=== PATIENT | female | born 1975 | race Caucasian/White ===

== ENCOUNTER 2025-02-24 18:03 | Emergency (ER) | payer OTHER, SELFPAY ==
--- NOTE | ~2025-02-24 | CT_ITS ---
CTA chest PE protocol Ordering provider: Akila Rueda PA-C History: 49 years Female with . cp, sob, dizziness . Comparison: None. Technique: CT angiogram chest was performed following timed intravenous injection of contrast. Thin s lice axial images and reformatted coronal images were obtained. Three dimensional reformatted images of the chest were also obtained using a [employer] workstation. . Automated exposure control and iterati ve reconstruction technique were employed. The dose-length product was 186.60 mGy-cm. 100 mL Omnipaqu e 350 was given IV. Findings: Bilateral breast implants are noted. Left axillary lymph node is seen measuring 1.6 cm. PULMONARY ARTERIES: No pulmonary embolus. VISUALIZED THORACIC INLET: Normal. MEDIASTINUM: Aorta/coronary arteries: The thoracic aorta is normal. Heart/other: The heart is not enlarged. Lymph nodes: No mediastinal or hilar adenopathy. LUNGS: No pulmonary nodules or masses. No infiltrates or effusions. No pneumothorax. Dependent atelectatic c hanges. VISUALIZED UPPER ABDOMEN: Tiny hypodense area in the gallbladder suggestive of organs and normal chol elithiasis. Prominent pancreatic duct. 2 left renal arteries are noted. Otherwise, the visualized up per abdomen is normal. MUSCULOSKELETAL: Soft tissues: The superficial soft tissues are normal. Bones: Normal spine. Metallic object seen in the right chest wall. IMPRESSION: 1. No pulmonary embolism. 2. No acute cardiopulmonary pathology. 3. Cholelithiasis. Reviewed, dictated and finalized at location A.
--- NOTE | ~2025-02-24 | XR_ITS ---
CHEST RADIOGRAPH, PA AND LATERAL CLINICAL HISTORY: chest pain WITH LIGHTHEADEDNESS SENIOR SHAREPOINT ARCHITECT . COMPARISON: None available TECHNIQUE: PA and lateral views of the chest. FINDINGS The cardiomediastinal silhouette is unremarkable. The lungs are clear. IMPRESSION: No focal infiltrate or effusion. Reviewed, dictated and finalized at location A.
--- OUTSIDE RECORDS SUMMARY | 2025-02-24 18:05 | XMS_ITS | Encounter Summary ---
Author Organization [facility] Healthcare Address [address] [place] [address] Care Team Providers Care Warehouse Supervisor 3Rd Shift Name Role Phone Geoffrey Pappas MD Primary Care Provider [phone] Reason for Visit * Reason Comments Dizziness Lightheaded SOB, and sweating at work today within the last hour and c/o feels like she has a ton of bricks on her chest. Encounter Details Date Type Department Care Team (Late st Contact Info) Description 02/24/2025 5:15 PM CDT Office Visit [facility] at [address] [address] Rubi Elias, PRODUCT MANAGER E [employer] [address] [place] [address] Other chest pain (Primary Dx); Lightheadedness; Numbness and tingling of both legs; Diaphoresis Social History Tobacco Use Types Packs/Day Years Used Date Smoking Tobacco: Light Smoker Cigarettes Smokeless Tobacco: Never Alcohol Use Standard Drinks/Week Comments No 0 (1 standard drink = 0.6 oz pur e alcohol) Humiliation, Afraid, Rape, and Kick questionnair e Answer Date Recorded Fear of Current or Ex-Partner Patient declined 0 12/12/2018 Emotionally Abused Patient declined 12/12/2018 Physically Abused Patient declined 12/12/2018 Sexually Abused Patient declined 12/12/2018 Social Connection and Isolation Panel [NHANES] A nswer Date Recorded Frequency of Communication with Friends and Fami ly Patient declined 12/12/2018 Frequency of Social Gatherings with Friends and Family Patient declined 12/12/2018 Attends Cheondoism Services Patient declined 11/29 Active Member of Clubs or Organizations Patient declined 12/12/2018 Attends Club or Organization Meetings Patient de clined 12/12/2018 Marital Status Patient declined 12/12/2018 Overall Financial Resource Strain (CARDIA) Answe r Date Recorded Difficulty of Paying Living Expenses Patient dec lined 12/12/2018 [facility] - Occupational Stress Questionnaire Answer Date Recorded Feeling of Stress Patient declined 12/12/2018 Exercise Vital Sign Answer Date Recorde d Days of Exercise per Week Patient declined 12/12 Minutes of Exercise per Session Patient declined 12/12/2018 Hunger Vital Sign Answer Date Recorded Worried About Running Out of Food in the Last Ye ar Patient declined 12/12/2018 Ran Out of Food in the Last Year Patient decline d 12/12/2018 PRAPARE - Transportation Answer Date Re corded Lack of Transportation (Medical) Patient decline d 12/12/2018 Lack of Transportation (Non-Medical) Patient dec lined 12/12/2018 Comments Unknown Sex and Gender Information Value Date Recorded Sex Assigned at Not on file Legal Sex Female 2:34 AM CASINO GAMING 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 Gender Identity Not on file Sexual Orientation Not on file 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 Not on file Not on file Not on fi le documented as of this encounter Last Filed Vital Signs Vital Sign Reading Time Taken Comments Blood Pressure 141/76 02/24/2025 5:24 PM CDT Pulse 70 02/24/2025 5:07 PM CDT Temperature 36.6 C (97.8 F) 02/24/2025 5:07 PM CDT Respiratory Rate 16 02/24/2025 5:07 PM CDT Oxygen Saturation 99% 02/24/2025 5:07 PM CDT Inhaled Oxygen Concentration - - Weight 57.6 kg (127 lb) 02/24/2025 5:07 PM CDT Height - - Body Mass Index 23.23 08/18/2019 10:21 AM CASINO GAMING WORKER documented in this encounter Plan of Treatment Not on file documented as of this encounter Visit Diagnoses Diagnosis Other chest pain- Primary Lightheadedness Dizziness and giddiness Numbness and tingling of both legs Disturbance of skin sensation Diaphoresis Generalized hyperhidrosis documented in this encounter Historical Medications * This list may reflect changes made after this encounter. SUMAtriptan (IMITREX) 50 mg tablet TAKE 1 TABLET BY MOUTH AT ONSET OF HEADACHE. MAY REPEAT IN 45 MINUTES. IF NO IMPROVEMENT. NO MORE THAN 2 PILLS PER DAY gabapentin (NEURONTIN) 300 mg capsule Take 1 capsule (300 mg total) by mouth 3 (three) times a day 11/07/2023 butalbital-acetam inophen-caffeine (ESGIC) 50-325-40 mg per tablet TAKE 2 TABLETS BY MOUTH AT ONSET OF HEADACHE THEN TAKE 1 TABLET BY MOUTH EVERY 6 HOURS NEEDED added in this encounter Care Teams Warehouse Supervisor 3Rd Shift Relationship Specialty Start Date End Date Geoffrey Pappas MD [address] [place] [address] PCP - General Neurology 02/20/24 documented as of this encounter
--- OUTSIDE RECORDS SUMMARY | 2025-02-24 18:05 | XMS_ITS | Encounter Summary ---
Author Organization [facility] Address [address] [place] [address] Care Team Providers Care Project Scheduler Name Role Phone Eryn Taveras MD Primary Care Provider [phone] Reason for Visit * Reason Onset Date Comments Question 04/27/2020 Patient called l ast week about this and states no one ever called her back. Patient was scheduled for surgery with Dr. aHy last week, but had to be cancelled due to an insurance issue. She is rescheduled, but not until June. She has some questions about her pain and the current script of Gabapentin she has. Encounter Details Date Type Department Care Team (Late st Contact Info) Description 04/27/2020 Telephone [facility] [address] [place] [address] Mary Ailce Hay MD [facility] [place] [address] Question (Patient called last week about this and states no one ever called her back. Patient was scheduled for surgery with Dr. Hay last week, but had to be cancelled due to an insurance issue. She is rescheduled, but not until June. She has some questions about her pain and the current script of Gabapentin she has. ) Social History Tobacco Use Types Packs/Day Years Used Date Smoking Tobacco: Former Cigarettes 0.3 2 0 12/2017 - 12/2019 Smokeless Tobacco: Never Alcohol Use Standard Drinks/Week Comments Not Currently 0 (1 standard drink = 0.6 oz pur e alcohol) Clean since 2012 Comments No Sex and Gender Information Value Date Recorded Sex Assigned at Female 10/11/2023 10:05 AM EXTRA HAND Legal Sex Female 9:02 AM CDT Gender Identity Female 10/11/2023 10:05 AM EXTRA HAND Sexual Orientation Not on file documented as of this encounter Miscellaneous Notes * Telephone Encounter - Bianka Bermudez - 04/27/2020 3:13 PM CDT Plastic Surgery Phone Encounter Note 04/27/2020 Patient Name: Faustina Douglass : 1975 Details of Conversation: Called patient and left her a voicemail. Plan: Will try again later / expect call from patient. Carlos Bermudez MD Plastic & Reconstructive Surgery Resident [facility] Pager#: [phone] 04/27/2020 documented in this encounter Plan of Treatment Not on file documented as of this encounter Visit Diagnoses Not on filedocumented in this encounter Care Teams Project Scheduler Relationship Specialty Start Date End Date Eryn Taveras MD [address] [place] [address] PCP - General Gastroenterology 04/13/20 documented as of this encounter
--- OUTSIDE RECORDS SUMMARY | 2025-02-24 18:05 | XMS_ITS | Patient Health Record ---
Author Organization [facility] Address [address] [place] [address] Support Name Relationship Address Phone Shailesh Douglass Emergency Contact [address] [facility], [address] Faustina Douglass Guarantor Unknown [phone] Reason For Referral No Information Plan Of Treatment No Information
--- OUTSIDE RECORDS SUMMARY | 2025-02-24 18:05 | XMS_ITS | Encounter Summary ---
Author Organization [facility] Health Address [address] [facility] [place] [address] Care Team Providers Care Filling Carrier Name Role Phone Eryn Taveras MD Primary Care Provider Reason for Visit * Reason Onset Date Comments Question 04/19/2020 Patient was sche duled for surgery with Dr. Hay last week, but had to be cancelled due to an insurance issue. She is rescheduled, but not until June. She has some questions about her pain and the current script of Gabapentin she has. Encounter Details Date Type Department Care Team (Late st Contact Info) Description 04/19/2020 Telephone [facility] [address] [place] [address] Mary Alice Hay MD [address] [place] [address] Question (Patient was scheduled for surgery with Dr. Hay [...] Sex Assigned at Female 10/11/2023 10:05 AM SHOE REPAIRER APPRENTICE Legal Sex Female 9:02 AM CDT Gender Identity Female 10/11/2023 10:05 AM SHOE REPAIRER APPRENTICE Sexual Orientation Not on file documented as of this encounter Plan of Treatment Not on file documented as of this encounter Visit Diagnoses Not on filedocumented in this encounter Care Teams Filling Carrier Relationship Specialty Start Date End Date Eryn Taveras MD [address] [place] [phone] PCP - General Gastroenterology 04/13/20 documented as of this encounter
--- OUTSIDE RECORDS SUMMARY | 2025-02-24 18:05 | XMS_ITS | Clinical Summary ---
Author Organization [facility] Address [address] [facility] [place] [address] Care Team Providers Care Stress Engineer Name Role Phone Eryn Taveras MD Primary Care Provider Source Comments [facility] Affiliates and Associated Physician Practices is amultiple site organization consisting of ambulatory clinics and hospital sitesin [place], [place], [place] and [place]. This disclosure is being madepursuant to the Care Everywhere program and may not contain all information available regarding this patient. Last updated 18.[facility] [employer] Allergies No known active allergies Medications * Be aware that medications may not be up to date on this document. Alwaysverify current medications with the patient. butalbital-acet aminophen-caffe ine (FIORICET) 50-325-40 MG tablet Take 1 (one) tablet by mouth as needed Active sertraline (ZOLOFT) 100 MG tablet Take 1 (one) tablet by mouth once daily 1 Active propranolol CR 24hr (INDERAL LA) 80 MG capsule Take 160 mg by mouth once daily 1 Active polyethylene glycol 3350 (MiraLax) 17 g packetIndicatio ns:Bloating Take 17 (seventeen) g by mouth once daily Reasons: Bloating 60 packet 2 3 Active Additional Information Patient not taking.Reported on 11/07/2023 gabapentin (Neurontin) 300 MG capsuleIndicati ons:S/P breast reconstruction, bilateral Take 1 (one) capsule by mouth 2 times daily 60 capsule 4 3 Active topiramate (Topamax) 50 MG tablet Take 1 (one) tablet by mouth once daily 3 Active gabapentin (Neurontin) 300 MG capsuleIndicati ons:S/P breast reconstruction, bilateral,Histo ry of right breast cancer,Neuropat hic pain Take 1 (one) capsule by mouth 3 times daily 270 capsule 4 4 Active Active Problems Problem Noted Date Diagnosed Date History of smoking 03/26/2019 Breast asymmetry following reconstructive surger y 03/26/2019 Capsular contracture of breast implant 9 BRCA gene mutation positive in female 03/26/2019 History of right breast cancer 01/15/2019 BRCA gene mutation positive 01/15/2019 S/P breast reconstruction, bilateral 01/15/2019 Acquired absence of breast and nipple, bilateral 01/15/2019 Malignant neoplasm of upper- outer quadrant of right breast in female, estrogen receptor positive 04/17/2018 Family History Medical History Relation Name Comments Cancer - Other Maternal Grandfather Cancer - Other Mother Cancer - Other Paternal Grandfather Relation Name Status Comments Maternal Grandfather Mother Paternal Grandfather Social History Tobacco Use Types Packs/Day Years Used Date Smoking Tobacco: Former Cigarettes 0.3 2 0 12/2017 - 12/2019 Smokeless Tobacco: Never Tobacco Cessation:Counseling Given: Not Answered Comments:smokes 1 every couple of weeks Alcohol Use Standard Drinks/Week Comments Not Currently 0 (1 standard drink = 0.6 oz pur e alcohol) Clean since 2012 Comments No Sex and Gender Information Value Date Recorded Sex Assigned at Female 10/11/2023 10:05 AM LOGISTICS DIRECTOR Legal Sex Female 9:02 AM CDT Gender Identity Female 10/11/2023 10:05 AM LOGISTICS DIRECTOR Sexual Orientation Not on file Last Filed Vital Signs Vital Sign Reading Time Taken Comments Blood Pressure 116/75 11/07/2023 1:44 PM LOGISTICS DIRECTOR Pulse 67 11/07/2023 1:44 PM LOGISTICS DIRECTOR Temperature 36.8 C (98.3 F) 02/07/2023 10:49 AM CDT Respiratory Rate 16 10/05/2022 3:52 PM LOGISTICS DIRECTOR Oxygen Saturation 98% 11/07/2023 1:44 PM LOGISTICS DIRECTOR Inhaled Oxygen Concentration - - Weight 59.9 kg (132 lb) 11/07/2023 1:44 PM LOGISTICS DIRECTOR Height 157.5 cm (5' 2) 11/07/2023 1:44 PM LOGISTICS DIRECTOR Body Mass Index 24.14 11/07/2023 1:44 PM LOGISTICS DIRECTOR Plan of Treatment Health Maintenance Due Date Last Done Comments COLOGUARD (AGES 45-75) - COL ON CA SCREENING 1975 CT COLONOGRAPHY - COLON CA SCREENING 1975 FIT - COLON CA SCREENING 1975 FLEX SIG - COLON CA SCREENING 1975 LIPID TESTING 1975 MAMMOGRAM 1975 PAP SMEAR 1975 HIV SCREENING 1991 HEPATITIS C SCREENING 11/04/1994 DTAP/TDAP/TD VACCINES (1 - Tdap) 1995 HEPATITIS B VACCINE (1 of 3 - 19+ 3-dose series) 1995 COVID-19 VACCINE (1 - 2023-2 5 season) 2024 DEPRESSION SCREENING 10/01/2024 INFLUENZA VACCINE (Season Ended) 2025 ZOSTER VACCINE (1 of 2) 2026 COLON MONITORING 04/12/2032 04/12/2022, 04/12/2022 COLONOSCOPY - COLON CA SCREENING 04/12/2032 04/12/2022, 04/12/2022 Colorectal Cancer Screening 04/12/2032 HIB VACCINE Aged Out No longer eligi ble based on patient's age to complete this topic HPV VACCINE Aged Out No longer eligi ble based on patient's age to complete this topic MENINGOCOCCAL (Group B) VACCINE SHARED DECISION-MAKING Aged Out No longer eligible based on patient's age to complete this topic MENINGOCOCCAL GROUPS A/C/Y/W VACCINE Aged Out No longer eligible b ased on patient's age to complete this topic PNEUMOCOCCAL VACCINE Aged Out No long er eligible based on patient's age to complete this topic Goals Goal Patient Goal Type Associated Problems Recent Progress Patient-Stated? Author Medication Management General On track( 023 4:00 PM LOGISTICS DIRECTOR) Rosalie Antony, RN Note: Expected end date: ongoing Interventions: Take all medications as prescribed Let your doctor know right away about any changes in your medications Make sure to request a refill of your medication at least one week prior to your last dose Medical Devices Implanted Type Area Broadband Installer Device Identifier Shelf Expiration Date Model / Serial / Lot Impl Brst 13cm Natrelle P5.7cm d Nj - [id number] Implanted:Qty: 1 on 06/04/2020 by Mary Alice Hay MD at [facility] Right: Breast [employer] 01/27/2024 [facility]-500 / [id number] / Description:Filled to 510ml Impl Brst 13.3-13.1cm Natrelle P5.8-6.4 - [id number] Implanted:Qty: 1 on 06/04/2020 by Mary Alice Hay MD at [facility] Right: Breast [employer] 10/11/2023 [facility]-550 / [id number] / Description:Filled to 560ml Impl Brst 13.3-13.1cm Natrelle P5.8-6.4 - [id number] Implanted:Qty: 1 on 07/08/2021 by Mary Alice Hay MD at [facility] Left: Breast [employer] 06/01/2025 [facility]-550 / [id number] / [id number] Description:Total Fat inject ed = 160cc Right Breast is 135cc Left Breast is 25cc Implant filled with 570cc of Saline Procedures Procedure Name Priority Date/Time Associated Diagnosis Comments ENDOSCOPY, COLON, SCREENING Routine 04/12/2022 8:47 AM CDT from Last 3 Months or Most Recently Relevant to Health Maintenance Results * ENDOSCOPY, COLON, SCREENING (04/12/2022 8:47 AM CDT) Report Endoscopy POC Endoscopy Department Report _ Patient Name: Gera Douglass Procedure Date: 04/12/2022 8:47 AM Date of : 1975 Classification: Outpatient Gender: Female Ethnicity: Not or Race: White _ Providers: Nathan Edward MD Referring MD: Sloane Johnston MD; Eryn Taveras MD Procedure: Colonoscopy Indications: Screening for colorectal malignant neoplasm Medications: See the Anesthesia note for documentation of the administered medications Patient Profile: 46F w/ BRCA2 mutation, prior bresat cancer 2002, and prior HIREN/BSO. Presents as direct referral for EGD +/- EUS for further evaluation of self-reported gastric wall thickening on previous CT (report/images not available for my review), and Colonoscopy for colorectal cancer screening purposes. Description of Procedure: After I obtained informed consent, the scope was passed under direct vision. Throughout the procedure, the patient's blood pressure, pulse, and oxygen saturations were monitored continuously. The Colonoscope was introduced through the anus and advanced to the terminal ileum. The colonoscopy was performed without difficulty. The patient tolerated the procedure well. The quality of the bowel preparation was evaluated using the BBPS ([place] Bowel Preparation Scale) with scores of: Right Colon = 2 (minor amount of residual staining, small fragments of stool and/or opaque liquid, but mucosa seen well), Transverse Colon = 3 (entire mucosa seen well with no residual staining, small fragments of stool or opaque liquid) and Left Colon = 3 (entire mucosa seen well with no residual staining, small fragments of stool or opaque liquid). The total BBPS score equals 8. The quality of the bowel preparation was adequate. Findings: The examined portion of the terminal ileum appeared normal. An 8 mm polyp was found in the ascending colon. The polyp was sessile. The polyp was removed with a cold snare. Resection and retrieval were complete. A 4 mm polyp was found in the descending colon. The polyp was sessile. The polyp was removed with a cold snare. Resection and retrieval were complete. A few small-mouthed diverticula were found in the sigmoid colon, descending colon and transverse colon. The exam was otherwise without abnormality on direct and retroflexion views. The perianal and digital rectal examinations were normal. Estimated Blood Loss: Estimated blood loss was minimal. Complications: No immediate complications. Impression: - The examined portion of the ileum was normal. - One 8 mm polyp in the ascending colon, removed with a cold snare. Resected and retrieved. - One 4 mm polyp in the descending colon, removed with a cold snare. Resected and retrieved. - Diverticulosis in the sigmoid colon, in the descending colon and in the transverse colon. - The examination was otherwise normal on direct and retroflexion views. Moderate Sedation: MAC Recommendation: - Monitor for fevers, bleeding, abdominal pain. - Resume previous diet and medications. - Follow-up pathology results. - Repeat Colonoscopy in 5 years for polyp surveillance purposes. - Follow-up with the referring providers has been discussed with the patient/caregiver. - Discussed that based on personal history of BRCA2 mutation, without family history of pancreatic cancer, based on the most recent guidelines on pancreatic cancer screening for high risk individuals, she qualifies for pancreatic cancer screening via MRI and/or EUS starting at age 50. Patient instructed to call back in the future to schedule the MRI or EUS exam. - The potential complications and concerning symptoms/findings, including but not limited to early or delayed fevers, infection, pain, bleeding, and perforation, were discussed with the patient/caregiver. Emergency contact information was provided. Attending Participation: I personally performed the entire procedure. Procedure Code(s): --- Professional --- 72441, Colonoscopy, flexible; with removal of tumor(s), polyp(s), or other lesion(s) by snare technique Diagnosis Code(s): --- Professional --- Z12.11, Encounter for screening for malignant neoplasm of colon K63.5, Polyp of colon K57.30, Diverticulosis of large intestine without perforation or abscess without bleeding CPT copyright 2019 [employer]. All rights reserved. The codes documented in this report are preliminary and upon after school program assistant review may be revised to meet current compliance requirements. Nathan Edward MD 04/12/2022 12:25:35 PM Note Initiated On: 04/12/2022 8:47 AM Number of Addenda: [address] [place] [address] [facility] 04/12/2022 8:47 AM CDT Nathan Edward MD GI PROCEDURE ORDERAB LES Edited Result - Final [facility] from Last 3 Months or Most Recently Relevant to Health Maintenance Insurance MEDICAID - OUT OF STATE MEDICAID - [facility] Care Teams Stress Engineer Relationship Specialty Start Date End Date Eryn Taveras MD [address] [place] [address] PCP - General Gastroenterology 04/13/20
--- OUTSIDE RECORDS SUMMARY | 2025-02-24 18:05 | XMS_ITS | Encounter Summary ---
Author Organization [facility] Health Address [address] [place] [address] Care Team Providers Care Food Preparation Worker Name Role Phone Eryn Taveras MD Primary Care Provider Reason for Visit * Reason Onset Date Comments Medication Problem 07/15/2021 Encounter Details Date Type Department Care Team (Late st Contact Info) Description 07/15/2021 Telephone [facility] [address] [place] [address] Mary Alice Hay MD [address] [place] [address] Medication Problem Social History Tobacco Use Types Packs/Day Years Used Date Smoking Tobacco: Former Cigarettes 0.3 2 0 12/2017 - 12/2019 Smokeless Tobacco: Never Alcohol Use Standard Drinks/Week Comments Not Currently 0 (1 standard drink = 0.6 oz pur e alcohol) Clean since 2012 Comments No Sex and Gender Information Value Date Recorded Sex Assigned at Female 10/11/2023 10:05 AM PEARL HAND Legal Sex Female 9:02 AM CDT Gender Identity Female 10/11/2023 10:05 AM PEARL HAND Sexual Orientation Not on file COVID-19 Exposure Response Date Recorded In the last month, have you been in contact with someone who was confirmed or suspected to have Coronavirus / COVID-19? No / Unsure 07/05/2021 2:08 PM CDT documented as of this encounter Functional Status * Is person deaf or have serious hearing difficulty? Answer Date of Assessment Author No 06/04/2020 2:10 PM CDT Mike Augustine RN * Is person blind or have serious difficulty seeing? Answer Date of Assessment Author No 06/04/2020 2:10 PM CDT Mike Augustine RN * Does person have serious difficulty walking/climbing stairs? Answer Date of Assessment Author No 06/04/2020 2:10 PM CDT Mike Augustine RN * Does person have difficulty dressing/bathing? Answer Date of Assessment Author No 06/04/2020 2:10 PM CDT Mike Augustine RN * Does person have difficulty doing errands alone? Answer Date of Assessment Author No 06/04/2020 2:10 PM CDT Mike Augustine RN documented as of this encounter Mental Status * Does person have difficulty concentrating/remembering/making decisions? Answer Entry Date Author No 06/04/2020 2:10 PM CDT Mike Augustine RN documented in this encounter Miscellaneous Notes * Telephone Encounter - Ashley Sherman - 07/18/2021 2:49 PM CDT Patient Called again to discuss vaginal infection/new antibiotic. Pharmacy on file is correct. * Telephone Encounter - Laureen Cordoba - 07/15/2021 10:58 AM CDT Ms. Douglass called to request different antibiotic becasue the one she is currently on has given aline vaginal infection. She can be reached at [phone]. documented in this encounter Plan of Treatment Not on file documented as of this encounter Visit Diagnoses Not on filedocumented in this encounter Care Teams Food Preparation Worker Relationship Specialty Start Date End Date Eryn Taveras MD [address] [place] [address] PCP - General Gastroenterology 04/13/20 documented as of this encounter
--- OUTSIDE RECORDS SUMMARY | 2025-02-24 18:05 | XMS_ITS | Encounter Summary ---
Author Organization [facility] Address [address] [facility] [place] [address] Care Team Providers Care Roving Machine Operator Name Role Phone Eryn Taveras MD Primary Care Provider [phone] Reason for Visit * Reason Comments Refill Request Encounter Details Date Type Department Care Team (Late st Contact Info) Description 07/10/2023 Refill [facility] [address] [facility] [place] [address] Tanesha Yanez MD [address] [place] [address] Refill Request Social History Tobacco Use Types Packs/Day Years Used Date Smoking Tobacco: Former Cigarettes 0.3 2 0 12/2017 - 12/2019 Smokeless Tobacco: Never Comments:smokes 1 every coup le of weeks Alcohol Use Standard Drinks/Week Comments Not Currently 0 (1 standard drink = 0.6 oz pur e alcohol) Clean since 2012 Comments No Sex and Gender Information Value Date Recorded Sex Assigned at Female 10/11/2023 10:05 AM MEMBERSHIP DIRECTOR Legal Sex Female 9:02 AM CDT Gender Identity Female 10/11/2023 10:05 AM MEMBERSHIP DIRECTOR Sexual Orientation Not on file documented as of this encounter Functional Status * Is person deaf or have serious hearing difficulty? Answer Date of Assessment Author No 04/12/2022 12:35 PM CDT Caitlin Ventura RN * Is person blind or have serious difficulty seeing? Answer Date of Assessment Author No 04/12/2022 12:35 PM Caitlin Moreno RN * Does person have serious difficulty walking/climbing stairs? Answer Date of Assessment Author No 04/12/2022 12:35 PM Caitlin Moreno RN * Does person have difficulty dressing/bathing? Answer Date of Assessment Author No 04/12/2022 12:35 PM Caitlin Moreno RN * Does person have difficulty doing errands alone? Answer Date of Assessment Author No 04/12/2022 12:35 PM Caitlin Moreno RN documented as of this encounter Mental Status * Does person have difficulty concentrating/remembering/making decisions? Answer Entry Date Author No 04/12/2022 12:35 PM Caitlin Moreno RN documented in this encounter Plan of Treatment Not on file documented as of this encounter Goals Goal Patient Goal Type Associated Problems Recent Progress Patient-Stated? Author Medication Management General On track( 023 4:00 PM MEMBERSHIP DIRECTOR) Rosalie Antony RN Note: Expected end date: ongoing Interventions: Take all medications as prescribed Let your doctor know right away about any changes in your medications Make sure to request a refill of your medication at least one week prior to your last dose documented as of this encounter Visit Diagnoses Diagnosis S/P breast reconstruction, bilateral Breast replaced by other means documented in this encounter Care Teams Roving Machine Operator Relationship Specialty Start Date End Date Eryn Taveras MD [address] [place] [address] PCP - General Gastroenterology 04/13/20 documented as of this encounter
--- OUTSIDE RECORDS SUMMARY | 2025-02-24 18:05 | XMS_ITS | CONTINUITY OF CARE DOCUMENT ---
Author Name che, che Address Unknown Organization [facility] Address [address] [facility] [address] [place] [address] Phone [phone] Care Team Providers Care Horseshoer Name Role Phone Naye Morales MD Unavailable [phone] AIXA WHITT MD Unavailable AIXA WHITT MD Unavailable [phone] PROBLEMS Condition Status Date Provider Notes Cardiology examination active Naye perez MD Breast cancer active Naye Morales MD Chest pain-type to be determined active Kevin Morales MD Palpitations active Naye Morales MD ENCOUNTERS Date Type Provider Location Encounter Diag nosis - In-person encounter Office Visit Naye Morales MD [facility] - In-person encounter Office Visit Naye Morales MD [facility] - In-person encounter Office Visit Naye Morales MD [facility] Cardiology examinationBreast cancerChest pain-type to be determinedPalpitations VITAL SIGNS Date Observation Value Provider Body Mass Index (Ratio) 24.14 kg/m2 Korina Morales MD blood pressure, diastolic 74 mm[Hg] Brigitte nkLogolivia blood pressure, systolic 104 mm[Hg] Mariia kLogic blood pressure, cuff size regular Ta bitha Lombardi blood pressure, diastolic 74 mm[Hg] Ta bitha Lombardi blood pressure, systolic 104 mm[Hg] Tab jayjaya Lombardi oxygen saturation, oximetry 99 % Martha Lombardi pulse rate 70 /min Martha Lombardi weight E&M 132 [lb_av] Martha Lombardi respiratory rate E&M 12 /min Martha Lombardi height E&M 62 [in_i] Martha Lombardi weight E&M 133 [lb_av] Nissa Darieln g Body Mass Index (Ratio) 24.32 kg/m2 Korina Morales MD blood pressure, diastolic 84 mm[Hg] Brigitte nkLog blood pressure, systolic 104 mm[Hg] Mariia [facility] blood pressure, cuff size regular James frank Lombardi blood pressure, diastolic 84 mm[Hg] James frank Lombardi blood pressure, systolic 104 mm[Hg] Tab marycarmen [place] oxygen saturation, oximetry 98 % Martha Lombardi pulse rate 98 /min Martha Lombardi weight E&M 133 [lb_av] Martha Lombardi respiratory rate E&M 12 /min Martha Lombardi height E&M 62 [in_i] Martha [place] Body Mass Index (Ratio) 24.32 kg/m2 Korina Morales MD blood pressure, diastolic -1 mm[Hg] Li nkLogic blood pressure, systolic 107 mm[Hg] Mariia kLogic blood pressure, diastolic 70 mm[Hg] Rickie rret blood pressure, systolic 107 mm[Hg] Jar ret pulse rate 81 /min Yariel erda y blood pressure, cuff size regular Ja rret height E&M 62 [in_i] [facility] y respiratory rate E&M 14 /min Yariel oxygen saturation, oximetry 97 % Yariel weight E&M 133 [lb_av] Yariel y ALLERGIES No Known Drug Allergies HISTORY OF MEDICATION USE Medication Status Instructions Dates Provider Indications Com ments gabapentin 300 mg capsule active TAKE 2 CAPSULES BY MOUTH 3 TIMES A DAY sertraline 100 mg tablet active TAKE 2 TABLETS BY MOUTH EVERY DAY Ubrelvy 100 mg tablet active Take as needed butalbital-acetam inophen-caff 50-325-40 mg tablet active Take as needed Yariel SOCIAL HISTORY Date Observation Value Provider personal history of marijuana use no Tanesha Ventimiglia [facility] drug use no Tanesha Ventimig jana [facility] alcohol use no Tanesha Ventimig jana [facility] smoking status Light tobacco smoker Amand a Ventimiglia [facility] smoking status Light tobacco smoker Clinton Morales MD smoking status Light tobacco smoker [facility] [employer] Payer name Policy type / Coverage type [place] red constitution party ID [id number] ADVANCE DIRECTIVES Name Date DISCUSSED - NO DECISION MADE TREATMENT PLAN Date Name Performer Cardiology Tanesha Ventimigl ia [facility] Cardiology:one short episode of svt on holter e ncouraged to avoid caffeine Tanesha Ventimiglia [facility] Cardiology:most like ly musculoskeletal as occurs with movement and palpation on exam in setting of breast ca history e cho normal. Stress test normal r ecommended warm and cold compresses and lidocaine chest pain Tanesha Ventimiglia [facility] Cardiology: A lso rports chest palpitations which can have quick onset when exercising but also can occur at night. These palps are associated with SOB and dizziness. Naye Morales MD Cardiology:Atypical S chedule for routine stress test today Naye Morales MD Cardiology:Prior hx of metastatic breast cancer with both radiation and chemo. She got a double mysectomy 20 years ago. Naye Morales MD Cardiology:Also rpor ts chest palpitations which can have quick onset when exercising but also can occur at night. These palps are associated with SOB and dizziness. Naye Morales MD Cardiology:Complains of CP which wasnt related to her implants. The pain is sometimes sharp and feels heavy. The pain sometimes radiates to her back. Non reproducable pain. Will order an echo, exericse stress test and Home monitor for 7 days Naye Morales MD Date Name Monitor - Telemetry (Mobile Cardiac) Stress Routine Complete Echo HISTORY OF PROCEDURES Procedure Date Procedure Name Provider Procedure Notes S tatus EKG Naye Morales MD complet ed Complex e/m visit add on Naye Morales MD completed EKG Naye Morales MD complet ed EKG Naye Morales MD complet ed
--- OUTSIDE RECORDS SUMMARY | 2025-02-24 18:06 | XMS_ITS | Encounter Summary ---
Author Organization [facility] Address [address] [place] [address] Care Team Providers Care Development Disability Specialist Name Role Phone Eryn Taveras MD Primary Care Provider Encounter Details Date Type Department Care Team (Late st Contact Info) Description 03/31/2019 Telephone [facility] [address] [place] [address] Mary Alice Hay MD [address] [address] Social History Tobacco Use Types Packs/Day Years Used Date Smoking Tobacco: Former Cigarettes Q uit: 01/02/2019 Smokeless Tobacco: Never Alcohol Use Standard Drinks/Week Comments No 0 (1 standard drink = 0.6 oz pur e alcohol) Comments Unknown Sex and Gender Information Value Date Recorded Sex Assigned at Female 10/11/2023 10:05 AM SWAT TEAM MEMBER Legal Sex Female 9:02 AM CDT Gender Identity Female 10/11/2023 10:05 AM SWAT TEAM MEMBER Sexual Orientation Not on file documented as of this encounter Miscellaneous Notes * Telephone Encounter - Laureen Cordoba - 03/31/2019 3:05 PM CDT Per Fax back from [facility] for cpt code 61133-95. documented in this encounter Plan of Treatment Not on file documented as of this encounter Visit Diagnoses Not on filedocumented in this encounter Care Teams Development Disability Specialist Relationship Specialty Start Date End Date Eryn Taveras MD [address] [place] [address] PCP - General Gastroenterology 04/13/20 documented as of this encounter
--- OUTSIDE RECORDS SUMMARY | 2025-02-24 18:06 | XMS_ITS | Encounter Summary ---
Author Organization [facility] Address [address] [place] [address] Care Team Providers Care Wind Operations Supervisor Name Role Phone Eryn Taveras MD Primary Care Provider [phone] Encounter Details Date Type Department Care Team (Late st Contact Info) Description 03/04/2020 Telephone [facility] [address] [place] [address] Mary Alice Hay MD [address] [place] [address] Social History Tobacco Use Types Packs/Day Years Used Date Smoking Tobacco: Former Cigarettes Q uit: 01/02/2019 Smokeless Tobacco: Never Alcohol Use Standard Drinks/Week Comments No 0 (1 standard drink = 0.6 oz pur e alcohol) Comments Unknown Sex and Gender Information Value Date Recorded Sex Assigned at Female 10/11/2023 10:05 AM MENTAL HEALTH THERAPIST Legal Sex Female 9:02 AM CDT Gender Identity Female 10/11/2023 10:05 AM MENTAL HEALTH THERAPIST Sexual Orientation Not on file COVID-19 Exposure Response Date Recorded In the last month, have you been in contact with someone who was confirmed or suspected to have Coronavirus / COVID-19? No / Unsure 02/25/2020 1:38 PM CDT documented as of this encounter Miscellaneous Notes * Telephone Encounter - Yasmin Ocasio - 03/04/2020 10:14 AM CDT Per Sissy at [facility], cpt codes: 29376-40, 28446-44, and 69454-04 has been approved with authorization# [id number]. This has been approved until 07/15/2020. Patient is scheduled for this procedure with Dr. Hay on 06/04/2020. She is coming into PAT for her COVID test on 06/01/2020 at 11:00 am. Yasmin Rodriguez [phone] documented in this encounter Plan of Treatment Not on file documented as of this encounter Visit Diagnoses Not on filedocumented in this encounter Care Teams Wind Operations Supervisor Relationship Specialty Start Date End Date Eryn Taveras MD [address] [place] [address] PCP - General Gastroenterology 04/13/20 documented as of this encounter
--- OUTSIDE RECORDS SUMMARY | 2025-02-24 18:06 | XMS_ITS | Clinical Summary ---
Author Organization [facility] Address [address] [place] [address] Care Team Providers Care Childcare Center Director Name Role Phone Geoffrey Pappas MD Primary Care Provider [phone] Allergies No known active allergies Medications multivitamin with minerals tablet daily. 04/26/20 17 Active ibuprofen (ADVIL,MOTRIN) 600 mg tablet ibuprofen 600 mg tablet Active ALPRAZolam (XANAX) 1 mg tablet alprazolam 1 mg tablet Active docusate sodium (COLACE) 100 mg capsule Doc-Q-Lace 100 mg capsule Active ergocalciferol (VITAMIN D) 50,000 unit capsule Vitamin D2 50,000 unit capsule Active HYDROcodone-ac etaminophen (NORCO) 5-325 mg per tablet hydrocodone 5 mg-acetaminophen 325 mg tablet Active multivitamin,t x-minerals (VITAMINS AND MINERALS) tablet daily. 04/26/20 17 Active oxyCODONE-acet aminophen (PERCOCET) 5-325 mg per tablet oxycodone-acetaminop hen 5 mg-325 mg tablet Active sertraline (ZOLOFT) 100 mg tablet sertraline 100 mg tablet Active sulfamethoxazo le-trimethopri m (BACTRIM DS) 800-160 mg per tablet sulfamethoxazole 800 mg-trimethoprim 160 mg tablet Active traZODone (DESYREL) 50 mg tablet trazodone 50 mg tablet Active butalbital-juan taminophen-caf feine (ESGIC) 50-325-40 mg per tablet TAKE 2 TABLETS BY MOUTH AT ONSET OF HEADACHE THEN TAKE 1 TABLET BY MOUTH EVERY 6 HOURS NEEDED Active gabapentin (NEURONTIN) 300 mg capsule Take 1 capsule (300 mg total) by mouth 3 (three) times a day 11/07/19 24 Active SUMAtriptan (IMITREX) 50 mg tablet TAKE 1 TABLET BY MOUTH AT ONSET OF HEADACHE. MAY REPEAT IN 45 MINUTES. IF NO IMPROVEMENT. NO MORE THAN 2 PILLS PER DAY Acti ve Active Problems Problem Noted Date Diagnosed Date Breast asymmetry following reconstructive surger y 03/26/2019 Capsular contracture of breast implant 9 History of smoking 03/26/2019 Acquired absence of breast and nipple, bilateral 01/15/2019 Genetic susceptibility to malignant neoplasm of breast 01/15/2019 S/P breast reconstruction, bilateral 01/15/2019 Impaired glucose tolerance 12/12/2018 Lymphedema of lower extremity 12/12/2018 Malignant tumor of breast 12/12/2018 Menopausal syndrome 12/12/2018 Chronic right Breast pain 05/09/2018 Malignant neoplasm of upper- outer quadrant of right breast in female, estrogen receptor positive 04/17/2018 Injury of globe of eye 04/17/2017 Compression injury of nerve 06/25/2015 Anxiety 01/27/2014 History of right breast cancer 01/27/2014 Lymphadenopathy 02/06/2012 Encounters Date Type Department Care Team Description 02/24/2025 5:15 PM CDT Office Visit [facility] at [address] [address] Rubi Elias, CLAUDY Other chest pain (Primary Dx); Lightheadedness; Numbness and tingling of both legs; Diaphoresis from Last 3 Months Immunizations Immunization Administration Dates Next Due Hep A, Adult 06/11/2000,10/19/1999 Surgical History Surgery Date Site/Laterality Comments MODIFIED RADICAL MASTECTOMY W/ AXILLARY LYMPH NODE DISSECTION 09/22/2003 Right TOTAL ABDOMINAL HYSTERECTOMY W/ BILATERAL SALPINGOOPHORECTOMY 01/13/2008 cervical squamous metaplasia Medical History Medical History Date Comments Malignant neoplasm of female breast (HCC) Infiltrating ductal carcinom a of breast - (Added by TW Conv) Personal history of malignan t neoplasm of breast History of malignant neoplas m of breast - History of Malignant Breast Neoplasm (Added by TW Conv) MRSA infection 2009 Family History Medical History Relation Name Comments Bone cancer Maternal Grandfather history of asbestos exposure Hepatitis c Mother Leukemia Paternal Grandfather Heart attack Paternal Grandmother Relation Name Status Comments Brother 1 Alive Brother 2 Alive Maternal Grandfather Mother Paternal Grandfather Paternal Grandmother Paternal Great-Grandmother Alive Social History Tobacco Use Types Packs/Day Years Used Date Smoking Tobacco: Light Smoker Cigarettes Smokeless Tobacco: Never Tobacco Cessation:Ready to Q uit: Yes; Counseling Given: Yes Alcohol Use Standard Drinks/Week Comments No 0 [...] Friends and Family Patient declined 12/12/2018 Attends Congregational Services Patient declined 11/29 Active Member of Clubs or Organizations Patient declined 12/12/2018 Attends Club or Organization Meetings Patient de clined 12/12/2018 Marital Status Patient declined 12/12/2018 Overall Financial Resource Strain (CARDIA) Answe r Date Recorded Difficulty of Paying Living Expenses Patient dec lined 12/12/2018 [facility] [place] of Occupat ional Health - Occupational Stress [...] on file Legal Sex Female 2:34 AM ELEVATOR SUPERVISOR Gender Identity Not on file Sexual Orientation Not on file 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 2, para 2. She has used oral contraceptives in the past for a few months. She has never used fertility medications or hormone replacement therapy. HIREN/BSO 01/13/2008. She was diagnosed with breast cancer after the of her first child after 10 weeks of breast feeding. Last Filed Vital Signs Vital Sign Reading Time Taken Comments Blood Pressure 141/76 02/24/2025 5:24 PM CDT Pulse 70 02/24/2025 5:07 PM CDT Temperature 36.6 C (97.8 F) 02/24/2025 5:07 PM CDT Respiratory Rate 16 02/24/2025 5:07 PM CDT Oxygen Saturation 99% 02/24/2025 5:07 PM CDT Inhaled Oxygen Concentration - - Weight 57.6 kg (127 lb) 02/24/2025 5:07 PM CDT Height 157.5 cm (5' 2) 08/18/2019 10:21 AM ELEVATOR SUPERVISOR Body Mass Index 23.23 08/18/2019 10:21 AM ELEVATOR SUPERVISOR Plan of Treatment Health Maintenance Due Date Last Done Comments Breast Cancer Screening-Mammogram 1976 Colon Cancer Screening-Colonoscopy 1976 Depression Screening 1976 Hepatitis C Screening 1976 DTaP/Tdap/Td Vaccine (1 - Tdap) 1987 Regular Well Visit/Exam 18-64 1994 Pneumococcal vaccine <65 (1 of 2 - PCV) 1995 Influenza Vaccine (Season Ended) 2025 Hepatitis B Screening Completed 06/21/2024 Insurance IDPA [facility] [employer] IDPA Care Teams Childcare Center Director Relationship Specialty Start Date End Date Geoffrey Pappas MD [address] [place] [address] PCP - General Neurology 02/20/24
--- OUTSIDE RECORDS SUMMARY | 2025-02-24 18:06 | XMS_ITS | Referral Summary ---
Author Organization [facility] Address [address] [place] [address] Care Team Providers Care Structural Steel Fitter Name Role Phone Geoffrey Pappas MD Primary Care Provider [phone] Encounters Date Type Department Care Team Description 02/24/2025 5:15 PM CDT Office Visit [facility] at [address] [id number] Rubi Elias NP Other chest pain (Primary Dx); Lightheadedness; Numbness and tingling of both legs; Diaphoresis from Last 3 Months Allergies No known active allergies Medications multivitamin [...] of right breast cancer 01/27/2014 Lymphadenopathy 02/06/2012 Immunizations Immunization Administration Dates Next Due Hep A, Adult 06/11/2000,10/19/1999 Social History Tobacco Use Types Packs/Day Years [...] Paying Living Expenses Patient dec lined 12/12/2018 [facility] [place] of Occupat ional Health - Occupational Stress [...] on file Legal Sex Female 2:34 AM GUNCOTTON PACKER Gender Identity Not on file Sexual Orientation Not on file 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
--- OUTSIDE RECORDS SUMMARY | 2025-02-24 18:06 | XMS_ITS | Encounter Summary ---
Author Organization [facility] Address [address] [place] [address] Care Team Providers Care Dry Clipper Tender Name Role Phone Eryn Taveras MD Primary Care Provider Encounter Details Date Type Department Care Team (Late st Contact Info) Description 02/10/2020 Telephone [facility] [address] [place] [address] Jamar Sepulveda MD [address] [address] Social History Tobacco Use Types Packs/Day Years Used Date Smoking Tobacco: Former Cigarettes Q uit: 01/02/2019 Smokeless Tobacco: Never Alcohol Use Standard Drinks/Week Comments No 0 (1 standard drink = 0.6 oz pur e alcohol) Comments Unknown Sex and Gender Information Value Date Recorded Sex Assigned at Female 10/11/2023 10:05 AM PAIRER SUBSTANDARD Legal Sex Female 9:02 AM CDT Gender Identity Female 10/11/2023 10:05 AM PAIRER SUBSTANDARD Sexual Orientation Not on file COVID-19 Exposure Response Date Recorded In the last month, have you been in contact with someone who was confirmed or suspected to have Coronavirus / COVID-19? Unable to assess 02/04/2020 1:52 PM CDT documented as of this encounter Plan of Treatment Not on file documented as of this encounter Visit Diagnoses Not on filedocumented in this encounter Care Teams Dry Clipper Tender Relationship Specialty Start Date End Date Eryn Taveras MD [address] [place] [address] PCP - General Gastroenterology 04/13/20 documented as of this encounter
--- NOTE | 2025-02-24 18:17 | ECG_ITS ---
Test Date: 2025-02-24 18:24:45 Measurements Intervals [place] Rate: 61 P: 48 RI: 144 QRS: 40 QRSD: 89 T: 56 QT: 412 QTc: 418 Interpretive Statements SINUS RHYTHM No previous ECG available for comparison Electronically Signed On 02-25-2025 16:33:32 CDT by Wilman Pinon M.D.
[2025-02-24 18:18] VITALS: BP 122/66; PULSE 80; RESP 16; TEMP 36.6; O2SAT 100
--- NOTE | 2025-02-24 18:25 | ED.CHESTPAIN ---
HPI - Chest Pain General Chief Complaint: Chest Pain <DIANELYS Miller Last Filed: 02/24/25 18:29> Stated Complaint: Chest pain, dizziness <DIANELYS Miller Last Filed: 02/24/25 18:29> Time Seen by Provider: 02/24/25 18:20 <DIANELYS Miller Last Filed: 02/24/25 18:29> Focused HPI: Patient is a 49-year-old female who presents the ED with report of chest pain. Patient reports she was at work when she suddenly began having chest pain around 4:30 p.m.. States pain was diffusely across her chest, felt as though a 1000 lb were sitting on her chest. Pain did radiate up into her neck. She began feeling lightheaded, dizzy, nauseous, sweaty, short of breath. She sat down and rested and states pain lasted for approximately 5 minutes. She then attempted to walk to her car developed the symptoms again. She then prompted here for further evaluation. Patient reports pain has been intermittent. She denies history of similar pain. Denies pain or swelling or legs, recent cough or cold symptoms, fevers. Denies history of HTN, HLD, DM, smoking, known FHx of heart disease. GENERAL: Well-appearing, well-nourished, and in no acute distress. HEAD: Normocephalic, atraumatic. CHEST: Clear to auscultation. ?No respiratory distress. HEART: Regular rate and rhythm.?No peripheral edema. NEURO: ?Alert and oriented x3. Patient screened in triage and initial orders placed.? ?Additional care and disposition to be based upon?diagnostic testing and treatment. <DIANELYS Miller Last Filed: 02/24/25 18:29> Source: patient <DIANELYS Miller Last Filed: 02/24/25 18:29> Mode of arrival: ambulatory <DIANELYS Miller Last Filed: 02/24/25 18:29> Limitations: no limitations <DIANELYS Miller Last Filed: 02/24/25 18:29> History of Present Illness HPI narrative: I agree with the assessment and documentation of Akila Rueda PA-C. <Klarissa Urbina APRN - Last Filed: 02/25/25 01:35> Related Data Allergies/Adverse Reactions: Allergies Allergy/AdvReac Type Severity Reaction Status Date / Time No Known Allergies Allergy Verified 02/24/25 18:05 <Akila Rueda PA-C - Last Filed: 02/24/25 18:29> Review of Systems Review of Systems: All systems reviewed & are unremarkable except as noted in HPI and below <Klarissa Urbina APRN - Last Filed: 02/25/25 01:35> Exam Narrative: GENERAL: Well appearing, well-nourished, non-toxic, in no acute distress. HEAD: Normocephalic, atraumatic. NECK: Supple. No adenopathy, no masses. RESPIRATORY: Airway patent, respirations nonlabored. Clear to auscultation bilaterally, no rales, rhonchi, wheezing. CARDIOVASCULAR: Regular rate and rhythm without murmurs, rubs, or gallops. Peripheral pulses 2+ and equal bilaterally. ABDOMINAL: Soft, nontender, nondistended, no hepatosplenomegaly. Normoactive BS. MUSCULOSKELETAL: Moves all extremities. Strength/ROM intact without gross deformities. SKIN: Warm, dry, normal color. No rashes. NEURO: A&O X3. Speech clear. Cranial nerves II-XII intact. No ataxic movements. PSYCHIATRIC: Appropriate mood and affect. Normal interaction. <Klarissa Urbina APRN - Last Filed: 02/25/25 01:35> Course Vital Signs Vital signs: Vital Signs Temperature 36.6 C 02/24/25 18:18 Pulse Rate 80 02/24/25 18:18 Respiratory Rate 16 02/24/25 18:18 Blood Pressure 122/66 02/24/25 18:18 Pulse Oximetry 100 02/24/25 18:18 Oxygen Delivery Room Air 02/24/25 18:18 Temperature 37.1 C 02/24/25 21:27 Pulse Rate 68 02/25/25 00:20 Respiratory Rate 17 02/24/25 21:27 Blood Pressure 112/66 02/24/25 21:27 Pulse Oximetry 100 02/24/25 21:27 Oxygen Delivery Room Air 02/25/25 00:20 <Akila Rueda PA-C - Last Filed: 02/24/25 18:29> Vital Signs Temperature 36.6 C 02/24/25 18:18 Pulse Rate 80 02/24/25 18:18 Respiratory Rate 16 02/24/25 18:18 Blood Pressure 122/66 02/24/25 18:18 Pulse Oximetry 100 02/24/25 18:18 Oxygen Delivery Room Air 02/24/25 18:18 Temperature 37.1 C 02/24/25 21:27 Pulse Rate 68 02/25/25 00:20 Respiratory Rate 17 02/24/25 21:27 Blood Pressure 112/66 02/24/25 21:27 Pulse Oximetry 100 02/24/25 21:27 Oxygen Delivery Room Air 02/25/25 00:20 <Klarissa Urbina APRN - Last Filed: 02/25/25 01:35> MDM - Chest Pain MDM Narrative Medical decision making narrative: MSE by MONSERRAT in triage. <Akila Rueda PA-C - Last Filed: 02/24/25 18:29> MSE by MONSERRAT in triage. Patient is a 49-year-old female who presents the ED with report of chest pain. Patient reports she was at work when she suddenly began having chest pain around 4:30 p.m.. States pain was diffusely across her chest, felt as though a 1000 lb were sitting on her chest. Pain did radiate up into her neck. She began feeling lightheaded, dizzy, nauseous, sweaty, short of breath. She sat down and rested and states pain lasted for approximately 5 minutes. She then attempted to walk to her car developed the symptoms again. She then prompted here for further evaluation. Patient reports pain has been intermittent. She denies history of similar pain. Denies pain or swelling or legs, recent cough or cold symptoms, fevers. Denies history of HTN, HLD, DM, smoking, known FHx of heart disease. Labs Ordered: CBC, CMP, troponin, PTT, lipase, INR, D-dimer, TSH Imaging Ordered: CTA chest, chest x-ray Medications Ordered: 1 L normal saline IV bolus, GI cocktail Results: Patient's CTA indicates 1. No pulmonary embolism. 2. No acute cardiopulmonary pathology. 3. Cholelithiasis. Diagnosis: atypical chest pain Risks: HEART score: low risk HEART Pathway for Early Discharge in Acute Chest Pain from [employer] on 02/25/2025 All calculations should be rechecked by clinician prior to use RESULT SUMMARY: 3 points HEART Pathway Score Low risk 0.9-1.7% 30-day MACE Repeat troponin at 3 hours and if negative, discharge home with outpatient follow-up. INPUTS: History ?> 1 = Moderately suspicious EKG ?> 0 = Normal Age ?> 1 = 45-64 Risk factors ?> 1 = 1-2 risk factors Initial troponin ?> 0 = <=Normal limit Consults: cardiology (outpatient) Patient Education/Shared MDM: Results of lab work and imaging shared with patient. She denies improvement of symptoms following GI cocktail, so she will be given Toradol IV. Pt endorses mild improvement of symptoms following Toradol medication administration. Patient strongly advised to maintain hydration status upon discharge and follow-up with her PCP as soon as possible and cardiology as needed. She will not be discharged home with any new prescriptions. Strict return precautions provided. Patient verbalized understanding and is in agreement with plan. Vital signs stable at time of discharge. All questions answered. <Klarissa Urbina APRN - Last Filed: 02/25/25 01:35> Differential Diagnosis Differential diagnosis: Likely atypical chest pain, st elevation myocardial infarction, costochondritis and other (GERD, musculoskeletal pain) <Klarissa Urbina APRN - Last Filed: 02/25/25 01:35> Lab Data Attestation: I reviewed the patient's lab results. <Klarissa Urbina APRN - Last Filed: 02/25/25 01:35> Result diagrams: 02/24/25 18:21 02/24/25 18:21 <Akila Rueda PA-C - Last Filed: 02/24/25 18:29> Labs: Lab Results 02/24/25 02/24/25 Range/Units 18:21 21:26 WBC 5.9 (4.5-10.0) K/mm3 RBC 3.80 L (4.2-5.4) M/mm3 Hgb 11.4 L (12.0-15.0) g/dL Hct 34.2 L (37.0-47.0) % MCV 90.0 (80-100) fl MCH 30.0 (26-34) pg MCHC 33.3 (32-36) g/dl RDW 13.3 (11.5-14.5) % Plt Count 167 (150-375) k/mm3 MPV 10.5 H (7.4-10.4) fl Immature Gran % (Auto) 0.3 (0-0.5) % Neut % (Auto) 67.3 (45.5-73.1) % Lymph % (Auto) 23.4 (18.3-44.2) % [place] % (Auto) 7.8 (2.6-8.5) % Eos % (Auto) 0.7 (0-4.4) % Baso % (Auto) 0.5 (0.2-1.2) % Lymph # (Auto) 1.38 (0.9-3.2) K/mm3 [place] # (Auto) 0.5 (0.1-0.6) K/mm3 Eos # (Auto) 0.0 (0-0.3) K/mm3 Baso # (Auto) 0.0 (0.0-0.1) K/mm3 Abs Immat Gran (auto) 0.02 (0.00-0.031) K/mm3 Absolute Neuts (auto) 4.0 (1.3-6.7) K/mm3 Absolute Nucleated RBC 0.000 (0.0-0.012) K/mm3 Nucleated RBC % 0.0 (0.0-0.2) % PT 15.0 H (11.1-14.7) Seconds INR 1.1 APTT 32.7 (22.3-36.8) Seconds D-Dimer 0.49 H (<0.48) ug/mL Sodium 140 (137-145) mmol/L Potassium 3.8 (3.4-5.0) mmol/L Chloride 103 (98-107) mmol/L Carbon Dioxide 28 (22-30) mmol/L Anion Gap 9 (4-12) mmol/L BUN 18 H (7-17) mg/dL Creatinine 0.81 (0.7-1.0) mg/dL Estim Creat Clear Calc Not Reportable Estimated GFR > 60 (59 - ) Glucose 97 (65-110) mg/dL Calcium 9.4 (8.4-10.2) mg/dL Total Bilirubin 0.7 (0.2-1.3) mg/dL AST 29 (14-36) U/L ALT 24 (6-35) U/L Alkaline Phosphatase 75 (38-126) U/L Troponin I < 0.012 < 0.012 (0.000-0.034) ng/mL Total Protein 8.0 (6.3-8.2) g/dL Albumin 4.9 (3.5-5.1) g/dL Lipase 189 (23-300) U/L TSH (Reflex) 1.080 (0.465-4.68) uIU/mL <Akila Rueda PA-C - Last Filed: 02/24/25 18:29> Lab Results 02/24/25 02/24/25 Range/Units 18:21 21:26 WBC 5.9 (4.5-10.0) K/mm3 RBC 3.80 L (4.2-5.4) M/mm3 Hgb 11.4 L (12.0-15.0) g/dL Hct 34.2 L (37.0-47.0) % MCV 90.0 (80-100) fl MCH 30.0 (26-34) pg MCHC 33.3 (32-36) g/dl RDW 13.3 (11.5-14.5) % Plt Count 167 (150-375) k/mm3 MPV 10.5 H (7.4-10.4) fl Immature Gran % (Auto) 0.3 (0-0.5) % Neut % (Auto) 67.3 (45.5-73.1) % Lymph % (Auto) 23.4 (18.3-44.2) % [place] % (Auto) 7.8 (2.6-8.5) % Eos % (Auto) 0.7 (0-4.4) % Baso % (Auto) 0.5 (0.2-1.2) % Lymph # (Auto) 1.38 (0.9-3.2) K/mm3 [place] # (Auto) 0.5 (0.1-0.6) K/mm3 Eos # (Auto) 0.0 (0-0.3) K/mm3 Baso # (Auto) 0.0 (0.0-0.1) K/mm3 Abs Immat Gran (auto) 0.02 (0.00-0.031) K/mm3 Absolute Neuts (auto) 4.0 (1.3-6.7) K/mm3 Absolute Nucleated RBC 0.000 (0.0-0.012) K/mm3 Nucleated RBC % 0.0 (0.0-0.2) % PT 15.0 H (11.1-14.7) Seconds INR 1.1 APTT 32.7 (22.3-36.8) Seconds D-Dimer 0.49 H (<0.48) ug/mL Sodium 140 (137-145) mmol/L Potassium 3.8 (3.4-5.0) mmol/L Chloride 103 (98-107) mmol/L Carbon Dioxide 28 (22-30) mmol/L Anion Gap 9 (4-12) mmol/L BUN 18 H (7-17) mg/dL Creatinine 0.81 (0.7-1.0) mg/dL Estim Creat Clear Calc Not Reportable Estimated GFR > 60 (59 - ) Glucose 97 (65-110) mg/dL Calcium 9.4 (8.4-10.2) mg/dL Total Bilirubin 0.7 (0.2-1.3) mg/dL AST 29 (14-36) U/L ALT 24 (6-35) U/L Alkaline Phosphatase 75 (38-126) U/L Troponin I < 0.012 < 0.012 (0.000-0.034) ng/mL Total Protein 8.0 (6.3-8.2) g/dL Albumin 4.9 (3.5-5.1) g/dL Lipase 189 (23-300) U/L TSH (Reflex) 1.080 (0.465-4.68) uIU/mL <Klarissa Urbina APRN - Last Filed: 02/25/25 01:35> Imaging Data Attestation: I personally reviewed and interpreted this imaging study as follows: <Klarissa Urbina APRN - Last Filed: 02/25/25 01:35> Radiologist's impression: Impressions Chest X-Ray 02/24/25 18:44 IMPRESSION: No focal infiltrate or effusion. Chest CTA 02/24/25 20:34 IMPRESSION: 1. No pulmonary embolism. 2. No acute cardiopulmonary pathology. 3. Cholelithiasis. <Klarissa Urbina APRN - Last Filed: 02/25/25 01:35> Discharge Plan Discharge Clinical Impression: Atypical chest pain <Akila Rueda PA-C - Last Filed: 02/24/25 18:29> Patient Disposition: Home <DIANELYS Miller Last Filed: 02/24/25 18:29> Condition: Stable <DIANELYS Miller Last Filed: 02/24/25 18:29> Instructions: Antibiotic Form, Chest Pain (ED) <DIANELYS Miller Last Filed: 02/24/25 18:29> Additional Instructions: Please return to the ER with any worsening symptoms. Follow-up with primary care provider as soon as possible. Take all medications as prescribed, including regularly scheduled medications. Your her workup was very reassuring today, but it is important for you to follow-up with the symptoms especially if they continue. <Akila Rueda PA-C - Last Filed: 02/24/25 18:29> Patient Language: Gambian <Akila Rueda PA-C - Last Filed: 02/24/25 18:29> Follow-up/Referrals: Seb Shetty MD [Physician] - (cardiology) Wing Montez MD [Physician] - (primary care provider) PHYSICIAN,TRIMMER HELPER [Primary Care Provider] - <Akila Rueda PA-C - Last Filed: 02/24/25 18:29> Time of Disposition: 01:33 <DIANELYS Miller Last Filed: 02/24/25 18:29> 01:33 <Klarissa Urbina APRN - Last Filed: 02/25/25 01:35>
[2025-02-24 18:42] LABS: Basophils Percent Auto 0.5 % (0.2-1.2); Eosinophils Percent Auto 0.7 % (0-4.4); Hematocrit 34.2 % (37.0-47.0); Hemoglobin 11.4 g/dL (12.0-15.0); Immature Granulocyte Absolute 0.02 K/mm3 (0.00-0.031); Immature Granulocyte Percent A 0.3 % (0-0.5); Lymphocytes Absolute Auto 1.38 K/mm3 (0.9-3.2); Lymphocytes Percent Auto 23.4 % (18.3-44.2); Mean Corpuscular HGB Conc 33.3 g/dl (32-36); Mean Platelet Volume 10.5 fl (7.4-10.4); Monocytes Absolute Auto 0.5 K/mm3 (0.1-0.6); Monocytes Percent Auto 7.8 % (2.6-8.5); Neutrophils Percent Auto 67.3 % (45.5-73.1); Platelet Count Result 167 k/mm3 (150-375); Red Cell Distribution Width 13.3 % (11.5-14.5); White Blood Count 5.9 K/mm3 (4.5-10.0)
[2025-02-24 18:53] LABS: Alanine Aminotransferase 24 U/L (6-35); Albumin Level 4.9 g/dL (3.5-5.1); Alkaline Phosphatase 75 U/L (38-126); Anion Gap 9 mmol/L (4-12); Aspartate Amino Transferase 29 U/L (14-36); Bilirubin,Total 0.7 mg/dL (0.2-1.3); Blood Urea Nitrogen 18 mg/dL (7-17); Calcium 9.4 mg/dL (8.4-10.2); Carbon Dioxide 28 mmol/L (22-30); Chloride 103 mmol/L (98-107); Estimated Glomerular Filt Rate > 60; Glucose 97 mg/dL (65-110); Lipase 189 U/L (23-300); Potassium 3.8 mmol/L (3.4-5.0); Sodium 140 mmol/L (137-145)
[2025-02-24 18:56] LABS: INR 1.1
[2025-02-24 18:57] LABS: Partial Thromboplastin Time 32.7 Seconds (22.3-36.8)
[2025-02-24 19:04] LABS: Troponin I < 0.012 ng/mL (0.000-0.034)
[2025-02-24 19:24] LABS: D Dimer 0.49 ug/mL (<0.48)
--- NOTE | 2025-02-24 21:08 | ECG_ITS ---
Test Date: 2025-02-24 21:25:03 Measurements Intervals [place] Rate: 67 P: 55 OR: 146 QRS: 45 QRSD: 90 T: 61 QT: 394 QTc: 418 Interpretive Statements SINUS RHYTHM Compared to ECG 02/24/2025 18:24:45 No significant changes Electronically Signed On 02-25-2025 16:35:47 CDT by Wilman Pinon M.D.
[2025-02-24 21:27] VITALS: BP 112/66; PULSE 62; RESP 17; TEMP 37.1; O2SAT 100
[2025-02-24 21:57] LABS: Troponin I < 0.012 ng/mL (0.000-0.034)
--- OUTSIDE RECORDS SUMMARY | 2025-02-24 23:47 | XMS_ITS | Encounter Summary ---
Author Organization [facility] Health Address [address] [place] [address] Care Team Providers Care Air Sealing Technician Name Role Phone Eryn Taveras MD Primary [...] Description 04/19/2020 Telephone [facility] [address] [place] [address] Mary Alice Hay MD [address] [place] [address] Question (Patient was scheduled for surgery with [...] Sex Assigned at Female 10/11/2023 10:05 AM LODGING FACILITIES ATTENDANT Legal Sex Female 9:02 AM CDT Gender Identity Female 10/11/2023 10:05 AM LODGING FACILITIES ATTENDANT Sexual Orientation Not on file documented as of this encounter Plan of Treatment Not on file documented as of this encounter Visit Diagnoses Not on filedocumented in this encounter Care Teams Air Sealing Technician Relationship Specialty Start Date End Date Eryn Taveras MD [address] [place] [id number] PCP - General Gastroenterology 04/13/20 documented as of this encounter
--- OUTSIDE RECORDS SUMMARY | 2025-02-24 23:47 | XMS_ITS | Encounter Summary ---
Author Organization [facility] Health Address [address] [facility] [place] [address] Care Team Providers Care Manufacturing Project Manager Name Role Phone Eryn Taveras MD Primary Care Provider [phone] Reason for Visit * Reason Comments Refill Request Encounter Details Date Type Department Care Team (Late st Contact Info) Description 07/10/2023 Refill [facility] [address] [facility] [place] [address] Tanesha Yanez MD [address] [place] [address] Refill Request Social History Tobacco Use Types [...] Sex Assigned at Female 10/11/2023 10:05 AM MACHINE STRAP BUCKLER Legal Sex Female 9:02 AM CDT Gender Identity Female 10/11/2023 10:05 AM MACHINE STRAP BUCKLER Sexual Orientation Not on file documented as [...] Management General On track( 023 4:00 PM MACHINE STRAP BUCKLER) Rosalie Antony RN Note: Expected end date: [...] means documented in this encounter Care Teams Manufacturing Project Manager Relationship Specialty Start Date End Date Eryn Taveras MD [address] [place] [address] PCP - General Gastroenterology 04/13/20 documented as of this encounter
--- OUTSIDE RECORDS SUMMARY | 2025-02-24 23:47 | XMS_ITS | Encounter Summary ---
Author Organization [facility] Address [address] [place] [address] Care Team Providers Care Keymodule Assembly Machine Tender Name Role Phone Eryn Taveras MD Primary Care Provider [phone] Reason for Visit * Reason Onset Date [...] Description 04/27/2020 Telephone [facility] [address] [place] [address] [facility] [place] [address] Question (Patient called last week about this [...] Sex Assigned at Female 10/11/2023 10:05 AM FILM PROJECTOR OPERATOR Legal Sex Female 9:02 AM CDT Gender Identity Female 10/11/2023 10:05 AM FILM PROJECTOR OPERATOR Sexual Orientation Not on file documented as of this encounter Miscellaneous Notes * Telephone Encounter - Bianka Bermudez - 04/27/2020 3:13 PM CDT Plastic Surgery Phone Encounter Note 04/27/2020 Patient Name: Faustina Douglass : 1975 Details of Conversation: Called patient and left her a voicemail. Plan: Will try again later / expect call from patient. Carlos Bermudez MD Plastic & Reconstructive Surgery Resident [facility] Pager#: [phone] 04/27/2020 documented in this encounter Plan of Treatment Not on file documented as of this encounter Visit Diagnoses Not on filedocumented in this encounter Care Teams Keymodule Assembly Machine Tender Relationship Specialty Start Date End Date Eryn Taveras MD [address] [place] [address] PCP - General Gastroenterology 04/13/20 documented as of this encounter
--- OUTSIDE RECORDS SUMMARY | 2025-02-24 23:47 | XMS_ITS | Encounter Summary ---
Author Organization [facility] Address [address] [place] [address] Care Team Providers Care Superintendent Cemetery Name Role Phone Eryn Taveras MD Primary Care Provider Encounter Details Date Type Department Care Team (Late st Contact Info) Description 02/10/2020 Telephone [facility] [address] [place] [address] Jamar Sepulveda MD [address] [phone] Social History Tobacco Use Types Packs/Day Years Used Date Smoking Tobacco: Former Cigarettes Q uit: 01/02/2019 Smokeless Tobacco: Never Alcohol Use Standard Drinks/Week Comments No 0 (1 standard drink = 0.6 oz pur e alcohol) Comments Unknown Sex and Gender Information Value Date Recorded Sex Assigned at Female 10/11/2023 10:05 AM CHANGE BOOTH ATTENDANT Legal Sex Female 9:02 AM CDT Gender Identity Female 10/11/2023 10:05 AM CHANGE BOOTH ATTENDANT Sexual Orientation Not on file COVID-19 Exposure [...] on filedocumented in this encounter Care Teams Superintendent Cemetery Relationship Specialty Start Date End Date Eryn Taveras MD [address] [place] [address] PCP - General Gastroenterology 04/13/20 documented as of this encounter
--- OUTSIDE RECORDS SUMMARY | 2025-02-24 23:47 | XMS_ITS | Encounter Summary ---
Author Organization [facility] Health Address [address] [place] [address] Care Team Providers Care Class A Regional Truck Driver Name Role Phone Eryn Taveras MD Primary Care Provider Reason for Visit * Reason Onset Date Comments Medication Problem 07/15/2021 Encounter Details Date Type Department Care Team (Late st Contact Info) Description 07/15/2021 Telephone [facility] [address] [place] [address] Mary Alice Hay MD [address] [address] Medication Problem Social History Tobacco Use Types Packs/Day Years Used Date Smoking Tobacco: Former Cigarettes 0.3 2 0 12/2017 - 12/2019 Smokeless Tobacco: Never Alcohol Use Standard Drinks/Week Comments Not Currently 0 (1 standard drink = 0.6 oz pur e alcohol) Clean since 2012 Comments No Sex and Gender Information Value Date Recorded Sex Assigned at Female 10/11/2023 10:05 AM ALUM PLANT SUPERVISOR Legal Sex Female 9:02 AM CDT Gender Identity Female 10/11/2023 10:05 AM ALUM PLANT SUPERVISOR Sexual Orientation Not on file COVID-19 Exposure [...] vaginal infection. She can be reached at [phone]. documented in this encounter Plan of Treatment Not on file documented as of this encounter Visit Diagnoses Not on filedocumented in this encounter Care Teams Class A Regional Truck Driver Relationship Specialty Start Date End Date Eryn Taveras MD [address] [place] [address] PCP - General Gastroenterology 04/13/20 documented as of this encounter
--- OUTSIDE RECORDS SUMMARY | 2025-02-24 23:47 | XMS_ITS | Data Portability ---
Author Organization VICKY Ember GERONIMO Address [address] [facility] [place] [address] Care Team Providers Care Care Companion Name Role Phone ERYN WHITT Primary Care Provider Unavailabl e Assessment No assessment recorded. Plan of Treatment Reminders Order Date Submit Date Provider Last Modified By Organization Details Last Modified Time Details Appointments ANY 10 2024 09:50A M Trey Dalton MD Not available Not available Not available Lab HbA1c (hemog lobin A1c), blood 2024 025 [facility], [address] [facility], [address], [place], [address], 02/07/2025 06:45:09 CMP, serum or plasma 2024 025 [facility], [address] [facility], [address], [place], [address], 02/07/2025 06:45:08 vitami n B12, serum 2024 025 [facility], [address] [facility], [address], [place], [address], 02/07/2025 06:45:10 CBC 2024 025 [facility], [address] [facility], [address], [place], [address], 02/07/2025 06:45:11 iron + TIBC + ferrit in, serum 2024 025 [facility], [address], [address], [place], [address], 02/07/2025 06:45:12 drug screen , 14 drugs (detec timed) , urine 2024 025 [facility], [address], [address], [place], [address], 02/14/2025 15:15:34 SARS CoV 2 RNA (COVID -19), QL, heddler tier-PC R, respir atory specim en 2023 024 [facility] (Lab), [address], [place], [address], 05/01/2024 16:23:37 unlist ed lab - CBC with differ ential /plate let 2023 024 [facility] (Lab), [address], [place], [address], 08/07/2024 10:45:32 ige, total, serum 2023 024 [facility] (Lab), [address], [place], [address], 05/24/2024 08:51:29 Referral podiat rist referr al 2024 025 HARI Schwartz DPM, [address] , [place], [address], 02/06/2025 15:55:50 dermat ologis t referr al 2024 025 HARI Mckeon MD, [address] , [place], [address], 02/06/2025 16:06:46 sleep medici ne referr al 2023 024 NICHELLE Dalton MD, [address] , [place], [address], 01/28/2025 11:01:54 Procedures pulmon jet stress test, simple (PROC) - 6 Minute Walk 2023 024 [facility] (Outpatient Orders), [address] [place], [address], 01/08/2025 12:30:08 Surgeries None record ed. Imaging XR, chest, 2 view 2023 024 [facility] (Cardio Ekg), [address] [place], [address], 10/30/2024 16:25:05 home sleep study 2023 024 [facility] ([facility] Sched[facility]), [address] [place], [address], 05/30/2024 11:22:13 PFT, comple te - W/ Post Bronch odilat or Spirom etry 2023 024 [facility] ([facility] Sched[facility]), [address] [place], [address], 07/22/2024 10:26:11 XR, chest, 2 view 2023 024 [facility] (Cardio Ekg), [address] [place], [address], 08/06/2024 11:45:11 Medication Orders butalb ital-a cetami nophen -caffe ine 50 mg-325 mg-40 mg tablet 2024 025 [id number], [address], [place], [place], [id number], 02/05/2025 17:51:15 Patient TargetsNo targets recorded. Patient Instructions Encounter Date Encounter Id Patient Instructions Last Modified By Organization Details Last Modified Time 11/26/2023 [id number] healthy lifestyle: care instructions [email or web address] Not available 11/26/2023 11:04:26 05/01/2024 [id number] sleep apnea: car e instructions [email or web address] Not available 05/01/2024 11:37:54 insomnia: care instructions [email or web address] Not available 05/01/2024 11:37:54 09/08/2024 [id number] sleep apnea: car e instructions ajamous Not available 09/08/2024 10:55:50 insomnia: care instructions [email or web address] Not available 09/08/2024 10:55:50 01/08/2025 [id number] sleep apnea: car e instructions ajamous Not available 01/08/2025 11:12:04 insomnia: care instructions [email or web address] Not available 01/08/2025 11:12:03 02/05/2025 [id number] prediabetes: car e instructions [email or web address] Not available 02/05/2025 17:51:08 chest pain: care instructions [email or web address] Not available 02/05/2025 17:51:08 bunion removal: before your surgery [email or web address] Not available 02/05/2025 17:56:32 bunions: care instructions [email or web address] Not available 02/05/2025 17:56:32 shortness of breath: care instructions [email or web address] Not available 02/05/2025 17:51:08 skin lesions: care instructions [email or web address] Not available 02/05/2025 17:56:32 Reason for Referral Sleep Medicine Referral for Morning headache Migraines/morning headaches Referring Physician: Eryn Whitt Internal Medicine, Encounter Date: 11/26/2023 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 METAB OLIC PANEL (14) glucose 91 mg/dL 70-99 Not Available [facility] ([facility]) [address] [place], [address], 02/07/2025 06:45:08 02/07/20 25 02/07/2025 COMP. METAB OLIC PANEL (14) BUN 24 mg/dL 6-24 Not Available [facility] ([facility]) [address] [place], [address], 02/07/2025 06:45:08 02/07/20 25 02/07/2025 COMP. METAB OLIC PANEL (14) creatinine 0.88 mg/dL 0.57-1 .00 Not Available [facility] ([facility]) [address] [place], [address], 02/07/2025 06:45:08 02/07/20 25 02/07/2025 COMP. METAB OLIC PANEL (14) eGFR 81 mL/mi n/1.7 3 >59 Not Available [facility] ([facility]) [address] [place], [address], 02/07/2025 06:45:08 02/07/20 25 02/07/2025 COMP. METAB OLIC PANEL (14) BUN/creatini ne ratio 27 9-23 above high normal Not Available [facility] ([facility]) [address] [place], [address], 02/07/2025 06:45:08 02/07/20 25 02/07/2025 COMP. METAB OLIC PANEL (14) sodium 141 mmol/ L 134-14 4 Not Available [facility] ([facility]) [address] [place], [address], 02/07/2025 06:45:08 02/07/20 25 02/07/2025 COMP. METAB OLIC PANEL (14) potassium 4.1 mmol/ L 3.5-5. 2 Not Available [facility] ([facility]) [address] [place] [place], [address], 02/07/2025 06:45:08 02/07/20 25 02/07/2025 COMP. METAB OLIC PANEL (14) chloride 103 mmol/ L 96-106 Not Available [facility] ([facility]) [address] [place], [address], 02/07/2025 06:45:08 02/07/20 25 02/07/2025 COMP. METAB OLIC PANEL (14) carbon dioxide, total 23 mmol/ L 20-29 Not Available [facility] ([facility]) [address] [place], [address], 02/07/2025 06:45:08 02/07/20 25 02/07/2025 COMP. METAB OLIC PANEL (14) calcium 9.4 mg/dL 8.7-10 .2 Not Available [facility] ([facility]) [address] [place], [address], 02/07/2025 06:45:08 02/07/20 25 02/07/2025 COMP. METAB OLIC PANEL (14) protein, total 7.2 g/dL 6.0-8. 5 Not Available [facility] ([facility]) [address] [place], [address], 02/07/2025 06:45:08 02/07/20 25 02/07/2025 COMP. METAB OLIC PANEL (14) albumin 4.5 g/dL 3.9-4. 9 Not Available [facility] ([facility]) [address] [place], [address], 02/07/2025 06:45:08 02/07/20 25 02/07/2025 COMP. METAB OLIC PANEL (14) globulin, total 2.7 g/dL 1.5-4. 5 Not Available [facility] ([facility]) [address] [place], [address], 02/07/2025 06:45:08 02/07/20 25 02/07/2025 COMP. METAB OLIC PANEL (14) bilirubin, total 0.4 mg/dL 0.0-1. 2 Not Available [facility] ([facility]) [address] [place], [address], 02/07/2025 06:45:08 02/07/20 25 02/07/2025 COMP. METAB OLIC PANEL (14) alkaline phosphatase 70 IU/L 44-121 Not Available [facility] ([facility]) [address] [place], [address], 02/07/2025 06:45:08 02/07/20 25 02/07/2025 COMP. METAB OLIC PANEL (14) AST (SGOT) 15 IU/L 0-40 Not Available [facility] ([facility]) [address] [place], [address], 02/07/2025 06:45:08 02/07/20 25 02/07/2025 COMP. METAB OLIC PANEL (14) ALT (SGPT) 11 IU/L 0-32 Not Available [facility] ([facility]) [address] [place], [address], 02/07/2025 06:45:08 02/07/20 25 02/07/2025 HEMOG LOBIN A1C hemoglobin A1C 5.3 % 4.8-5. 6 Predi abete s: 5.7 - 6.4 Diabe chip: >6.4 Glyce ion contr ol for adult s with diabe chip: <7.0 Not Available [facility] ([facility]) [address] [place], [address], 02/07/2025 06:45:09 02/07/20 25 02/07/2025 VITAM IN B12 vitamin B12 858 pg/mL 232-12 45 Not Available [facility] ([facility]) [address] [place], [address], 02/07/2025 06:45:10 02/07/2002/06/2025 CBC, PLATE LET, NO DIFFE RENTI AL WBC 5.1 x10e3 /uL 3.4-10 .8 Not Available [facility] ([facility]) [address] [facility], [place], [address], 02/07/2025 06:45:11 02/07/2002/06/2025 CBC, PLATE LET, NO DIFFE RENTI AL RBC 3.99 x10e6 /uL 3.77-5 .28 Not Available [facility] ([facility]) [address] [place], [address], 02/07/2025 06:45:11 02/07/2002/06/2025 CBC, PLATE LET, NO DIFFE RENTI AL hemoglobin 11.7 g/dL 11.1-1 5.9 Not Available [facility] ([facility]) [address] [place], [address], 02/07/2025 06:45:11 02/07/2002/06/2025 CBC, PLATE LET, NO DIFFE RENTI AL hematocrit 35.5 % 34.0-4 6.6 Not Available [facility] ([facility]) [address] [place], [address], 02/07/2025 06:45:11 02/07/2002/06/2025 CBC, PLATE LET, NO DIFFE RENTI AL MCV 89 fL 79-97 Not Available [facility] ([facility]) [address] [place], [address], 02/07/2025 06:45:11 02/07/2002/06/2025 CBC, PLATE LET, NO DIFFE RENTI AL MCH 29.3 pg 26.6-3 3.0 Not Available [facility] ([facility]) [address] [place], [address], 02/07/2025 06:45:11 02/07/20 25 02/06/2025 CBC, PLATE LET, NO DIFFE RENTI AL MCHC 33.0 g/dL 31.5-3 5.7 Not Available [facility] ([facility]) [address] [place], [address], 02/07/2025 06:45:11 02/07/2002/06/2025 CBC, PLATE LET, NO DIFFE RENTI AL RDW 13.0 % 11.7-1 5.4 Not Available [facility] ([facility]) [address] [facility], [place], [address], 02/07/2025 06:45:11 02/07/20 25 02/06/2025 CBC, PLATE LET, NO DIFFE RENTI AL platelets 151 x10e3 /uL 150-45 0 Not Available [facility] ([facility]) [address] [facility], [place], [address], 02/07/2025 06:45:11 02/07/2002/07/2025 FE+TI BC+FE R iron bind.cap.(TI BC) 260 ug/dL 250-45 0 Not Available [facility] ([facility]) [address] [place], [address], 02/07/2025 06:45:12 02/07/2002/07/2025 FE+TI BC+FE R UIBC 160 ug/dL 131-42 5 Not Available [facility] ([facility]) [address] [place], [address], 02/07/2025 06:45:12 02/07/2002/07/2025 FE+TI BC+FE R iron 100 ug/dL 27-159 Not Available [facility] ([facility]) [address] [place], [address], 02/07/2025 06:45:12 02/07/2002/07/2025 FE+TI BC+FE R iron saturation 38 % 15-55 Not Available [facility] ([facility]) [address] [facility], [place], [address], 02/07/2025 06:45:12 02/07/20 25 02/07/2025 FE+TI BC+FE R ferritin 909 NG/mL 15-150 above high normal Not Available [facility] ([facility]) [address] [facility], [place], [address], 02/07/2025 06:45:12 02/07/20 25 02/14/2025 COMPL IANCE DRUG LENY SIS, UR summary report (summary) FINAL ===== ===== ===== ===== ===== ===== ===== ===== ===== ===== ===== ===== ===== === TOXAS SURE COMP DRUG LENY SIS,U R ===== ===== ===== ===== ===== ===== ===== ===== ===== ===== ===== ===== ===== === Test Resul t Flag Units Drug Prese nt Butal bital PRESE NT Gabap entin PRESE NT Sertr blanche PRESE NT Desme thyls ertra line PRESE NT Desme thyls ertra line is an expec zane metab olite of sertr blanche . Aceta minop hen PRESE NT Ibupr ofen PRESE NT ===== ===== ===== ===== ===== ===== ===== ===== ===== ===== ===== ===== ===== === Test Resul t Flag Units Ref Range Creat inine 225 mg/dL >=20 ===== ===== ===== ===== ===== ===== ===== ===== ===== ===== ===== ===== ===== === Decla red Medic ation s: Medic ation list was not provi ded. ===== ===== ===== ===== ===== ===== ===== ===== ===== ===== ===== ===== ===== === For clini jayson consu ltati on, pleas e call [phone]. ===== ===== ===== ===== ===== ===== ===== ===== ===== ===== ===== ===== ===== === Not Available [facility] ([facility]) [address] [facility], [place], [address], 02/14/2025 15:15:34 02/07/20 25 02/14/2025 COMPL IANCE DRUG LENY SIS, UR pdf . Not Available [facility] ([facility]) [address] [facility], [place], [address], 02/14/2025 15:15:34 11/26/19 24 11/26/2023 nerve condu ction study No observ ation record ed. [email or web address] [facility] Neurology [address] [facility] [address], [place], [address], 11/29/2023 18:01:24 05/01/20 24 05/01/2024 trans -thor acic echoc ardio gram (TTE) (PROC ) No observ ation record ed. [email or web address] [facility] [address] [facility] [address], [place], [address], 05/12/2024 10:30:41 05/01/20 24 05/01/2024 trans -thor acic echoc ardio gram (TTE) (PROC ) No observ ation record ed. [email or web address] [facility] [address], [place], [address], 05/12/2024 10:30:55 05/15/20 24 05/15/2024 XR, chest No observ ation record ed. [address] [place], [address], 05/17/2024 04:55:47 05/15/20 24 05/15/2024 XR, chest No observ ation record ed. [address] [place], [address], 05/17/2024 04:55:47 05/26/20 24 05/26/2024 elect rocar diogr am No observ ation record ed. [address] [facility] [address], [place], [address], 06/11/2024 07:22:32 05/30/20 24 05/28/2024 home sleep study No observ ation record ed. [facility] [address] [place], [address], 06/05/2024 10:30:05 05/30/20 24 05/28/2024 home sleep study No observ ation record ed. [address] [place], [address], 06/12/2024 03:46:00 07/22/20 24 07/09/2024 PFT, compl ete No observ ation record ed. [facility] [address] [place], [address], 07/28/2024 12:00:18 08/27/20 24 05/28/2024 elect rocar diogr am No observ ation record ed. [address] [facility] [address], [place], [address], 09/16/2024 14:01:05 09/08/20 24 09/08/2024 XR, chest , 2 view No observ ation record ed. [email or web address] [facility] [address], [place], [address], 09/18/2024 11:13:28 10/03/19 25 05/15/2024 XR, chest , 2 view No observ ation record ed. [facility] ([facility]) [address], [place], [address], 10/03/2024 15:17:27 Result Notes None recorded. Problems Name Problem SNOMED Code Status Onset Date Resolution Date Notes Provider Name and Address Organization Details Recorded Time Migraine 25813437 Active 020 Eryn Whitt MD Attn: Betsy eagle,[address] [facility], [place], [address], [place] [facility] 0 11:23:47 Mood disorder 40307501 Active 020 Eryn Whitt MD Attn: Betsy eagle,[address] [facility], [place], [address], [place] [facility] 0 17:23:10 History of malignant neoplasm of breast 316849919 Active 020 Eryn Whitt MD Attn: Betsy eagle,[address] [facility], [place], [address], [place] [facility] 0 13:05:24 Abdominal pain 35412800 Active 020 Eryn Whitt MD Attn: Betsy eagle,[address] [facility], [place], [address], [place] [facility] 0 13:05:56 Chronic anemia 173037241 Active 023 Eryn Whitt MD Attn: Betsy eagle,[address] [facility], [place], [address], [place] [facility] 3 05:43:42 Serum ferritin above reference range 587259254 Active 023 Eryn Whitt MD Attn: Swetabrandt eagle,[address] [facility], [place], [address], [place] [facility] 3 13:40:39 Morning headache 999307483 Active 023 Eryn Whitt MD Attn: Swetabrandt eagle,[address] [facility], [place], [address], [place] [facility] 3 15:32:41 Dyspnea 115622197 Active 023 Eryn Whitt MD Attn: Swetabrandt eagle,[address] [facility], [place], [address], [place] [facility] 3 15:39:46 Pain of scar 650105043 Active 023 Eryn Whitt MD Attn: Betsy shagufta,[address] [facility], [place], [address], [place] [facility] 3 15:45:13 Medication monitoring Active 023 Eryn Whitt MD Attn: Betsy shagufta,[address] [facility], [place], [address], [place] [facility] 3 12:00:42 Atypical chest pain 126435484 Active 024 Eryn Whitt MD Attn: Betsy shagufta,[address] [facility], [place], [address], [place] [facility] 4 11:02:00 Sleep disorder 35301458 Active 024 Eryn Whitt MD Attn: Betsy eagle,[address] [facility], [place], [address], [place] [facility] 4 04:36:12 Chest pain 68992869 Active 024 Eryn Whitt MD Attn: Betsy shagufta,[address] [facility], [place], [address], [place] [facility] 4 00:28:55 Bunion 983081415 Active 025 Eryn Whitt MD Attn: Betsy eagle,[address] [facility], [place], [address], [place] [facility] 5 17:53:49 Skin lesion 35908336 Active 025 Eryn Whitt MD Attn: Betsy eagle,[address] [facility], [place], [address], [place] [facility] 5 17:54:32 Malignant tumor of breast 680658921 Active Colin suarez, [place] [facility] 6 17:39:36 Menopausal syndrome 625294699 Active Colin Freeman null, [place] [facility] 6 17:39:36 Lymphedema of lower extremity 612261006 Active Colin Freeman null, [place] [facility] 6 17:39:36 Impaired glucose tolerance 3784241 Active Eryn Whitt MD Attn: Betsy eagle,[address] [facility], [place], [address], [place] [facility] 6 11:22:29 Injury of globe of eye 956840771 Active 017 Eryn Whitt MD Attn: Betsy eagle,[address] [facility], [place], [address], [place] [facility] 7 16:55:31 Problem Notes None recorded. Procedures Surgical History Date Name Laterality Status Provider Name and Address Organization Details Recorded Time 10/01/19 16 Total hysterectomy completed TONE LAMAR Attn: Accounting,[address] [facility], [place], [address], [place] [facility] 08/22/2023 08:55:19 12/31/19 07 Date of Last Pap Smear completed Laura Schumacher [place] 01/05/2016 10:24:12 10/01/19 05 Breast Implants completed Laura Shcumacher [place] 01/05/2016 10:33:29 10/01/19 03 Most Recent Mammogram completed Laura Schumacher MA [facility] 01/05/2016 10:33:29 10/01/19 03 Breast Surgery completed Laura Schumacher MA [facility] 01/05/2016 10:33:29 10/01/19 03 Mastectomy completed Sis Morales MA [facility] 01/05/2016 10:59:38 Hysterectomy completed Jhoana Ayers MA [facility] 03/15/2016 10:42:03 Imaging Results None recorded. Procedure Notes None recorded. Medical Equipment None Reported. Allergies No known drug allergies Medications Name Sig Start Date Stop Date Status Note LastModified by Organization Details LastModified Time cyclobenzap rine 10 mg tablet active Not Available Not Available Not Available propranolol ER 160 mg capsule,24 hr,extended release TAKE 1 CAPSULE BY MOUTH EVERY DAY 11/26 completed Not Available Not Available Not Available trazodone 50 mg tablet active Not Available Not Available Not Available Stool Softener 100 mg capsule TAKE ONE CAPSULE BY MOUTH ONCE DAILY FOR 14 DAYS 12/28 completed Not Available Not Available Not Available alprazolam 1 mg tablet active Not Available Not Available Not Available fluconazole 150 mg tablet TAKE 1 TABLET BY MOUTH TODAY AND ANOTHER TABLET IN 3 DAYS 12/28 completed Not Available Not Available Not Available hydrocodone 5 mg-acetamin ophen 325 mg tablet TAKE 1 TABLET BY MOUTH EVERY 6 HOURS NEEDED FOR PAIN 12/28 completed Not Available Not Available Not Available sertraline 100 mg tablet TAKE 1 TABLET BY MOUTH EVERY DAY active Not Available Not Available No t Available sumatriptan 50 mg tablet TAKE 1 TABLET BY MOUTH AT ONSET OF HEADACHE. MAY REPEAT IN 45 MINUTES. IF NO IMPROVEME NT. NO MORE THAN 2 PILLS PER DAY 02/05 completed Not Available Not Available Not Available penicillin V potassium 500 mg tablet TAKE 1 TABLET BY MOUTH FOUR TIMES DAILY UNTIL ALL TAKEN 11/26 completed Not Available Not Available Not Available sulfamethox azole 800 mg-trimetho prim 160 mg tablet active Not Available Not Available Not Available butalbital- acetaminoph en-caffeine 50 mg-325 mg-40 mg tablet TAKE 2 TABLETS BY MOUTH AT ONSET OF HEADACHE THEN TAKE 1 TABLET BY MOUTH EVERY 6 HOURS NEEDED active Not Available Not Available No t Available oxycodone-a cetaminophe n 5 mg-325 mg tablet active Not Available Not Available No t Available cephalexin 500 mg capsule TAKE 1 CAPSULE BY MOUTH EVERY 6 HOURS FOR 7 DAYS 12/28 completed Not Available Not Available Not Available diclofenac 0.1 % eye drops Instill 1 drop 4 times a day by ophthalmi c route. 03/08 completed Not Available Not Available Not Available propranolol ER 80 mg capsule,24 hr,extended release TAKE 1 CAPSULE BY MOUTH EVERY DAY 10/11 completed Not Available Not Available Not Available gabapentin 300 mg capsule TAKE 1 CAPSULE BY MOUTH THREE TIMES DAILY active Not Available Not Available No t Available gabapentin 100 mg capsule 09/22 completed Not Available Not Available Not Available ibuprofen 600 mg tablet active Not Available Not Available Not Available Vitamin D2 1,250 mcg (50,000 unit) capsule 03/08 completed Not Available Not Available Not Available diazepam 5 mg tablet 09/22 completed Not Available Not Available Not Available oxycodone 5 mg tablet 09/22 completed Not Available Not Available Not Available escitalopra m 10 mg tablet TAKE 1 TABLET BY MOUTH EVERY DAY 03/22 completed Not Available Not Available Not Available escitalopra m 20 mg tablet TAKE 1 TABLET BY MOUTH EVERY DAY 05/03 completed Not Available Not Available Not Available topiramate 50 mg tablet TAKE 1 TABLET BY MOUTH EVERY DAY active Not Available Not Available No t Available peg 3350-electr olytes 236 gram-22.74 gram-6.74 gram-5.86 gram solution TAKE 4000 ML BY MOUTH ONCE FOR 1 DOSE. PLEASE SEE INSTRUCTI ONS SENT VIA MAIL. 10/11 completed Not Available Not Available Not Available Ubrelvy 100 mg tablet active Not Available Not Available No t Available ID NOW COVID-19 Test Kit USE DIRECTED 12/28 completed Not Available Not Available Not Available Qulipta 60 mg tablet active Not Available Not Available No t Available Vitals Date Recorded Body height Body mass index (BMI) Body weight Heart rate Body temperature Oxygen saturation Oxygen saturation in Arterial blood by Pulse oximetry Systolic And Diastolic Provider Name and Address Organization Details Last Updated DateTime 4 154.94 cm 24.8 kg/m2 70601.6 g 88 /min 98 [degF] 98 % 98 % 112/74 mm[Hg] Jhoana Sepulveda [place] [facility] 4 10:40:39 Date Recorded Body height Body temperature Body mass index (BMI) Body weight Respiratory rate Oxygen saturation Oxygen saturation in Arterial blood by Pulse oximetry Heart rate Systolic And Diastolic Provider Name and Address Organization Details Last Updated DateTime 5 157.48 cm 97.4 [degF] 23.6 kg/m2 77498.4 2 g 18 /min 98 % 98 % 78 /min 104/66 mm[Hg] Gretta Elizondo LPN [facility] 5 11:07:27 Date Recorded Body height Body mass index (BMI) Body weight Heart rate Oxygen saturation Oxygen saturation in Arterial blood by Pulse oximetry Systolic And Diastolic Provider Name and Address Organization Details Last Updated DateTime 5 157.48 cm 23.6 kg/m2 76488.4 2 g 72 /min 97 % 97 % 106/57 mm[Hg] Aramis Squires MA [facility] 5 17:22:03 Date Recorded Body height Body mass index (BMI) Body weight Body temperature Respiratory rate Oxygen saturation Oxygen saturation in Arterial blood by Pulse oximetry Heart rate Systolic And Diastolic Provider Name and Address Organization Details Last Updated DateTime 4 157.48 cm 24 kg/m2 25829.6 g 97.9 [degF] 18 /min 98 % 98 % 78 /min 104/70 mm[Hg] Gretta Elizondo LPN [facility] 4 11:21:11 Date Recorded Body height Provider Name an d Address Organization Details Last Updated DateTime 09/08/2024 157.48 cm Jazmyne Naranjo MA [facility] 09/08/2024 10:43:01 Social History Question Answer Notes LastModified by Organizat ion Details LastModified Time Tobacco Smoking Status Former Smoker Jhoana Sepulveda MA [facility], [facility] 09/22/2020 12:34:16 Do You Have An Advance Directive? No Information not available 01/05/2016 Is Blood Transfusion Acceptable In An Emergency? Yes Information not available 01/05/2016 What Is Your Level Of Caffeine Consumption? Occasional Information not available 01/05/2016 How Much Tobacco Do You Chew? None Information not available 01/05/2016 In The 14 Days Before Symptom Onset, Have You Had Close Contact With A Laboratory-confir med COVID-19 While That Case Was Ill? No Information not available 05/01/2024 In The 14 Days Before Symptom Onset, Have You Had Close Contact With A Person Who Is Under Investigation For COVID-19 While That Person Was Ill? No Information not available 05/01/2024 Have You Been To An Area Known To Be High Risk For COVID-19? No Information not available 05/01/2024 What Type Of Diet Are You Following? REGULAR Information not available 01/05/2016 Which Illicit Or Recreational Drugs Have You Used? None Information not available 01/05/2016 Education 2 Year College Informatio n not available 01/05/2016 Live Alone Or With Others? With Others Information not available 01/05/2016 What Was The Date Of Your Most Recent Tobacco Screening? 02/05/2025 [email or web address] Information not available 02/05/2025 How Many Children Do You Have? 2 Information not available 01/05/2016 Performs Monthly Self-breast Exam? Yes Information no t available 01/05/2016 Do You Use Protection During Sex? Always Information not available 01/05/2016 What Is Your Relationship Status? Single Information not available 01/05/2016 Seat Belts Used Routinely Yes Information not available 01/05/2016 Are You Sexually Active? Yes Information not available 01/05/2016 At What Age Did You Start Smoking Tobacco? 38 Information not available 01/05/2016 How Much Tobacco Do You Smoke? 0.25 PPD Information not available 07/07/2020 General Stress Level Low Information not available 01/05/2016 Do You Use Sunscreen Routinely? Yes Information not available 01/05/2016 Has Tobacco Cessation Counseling Been Provided? No Information not available 02/07/2023 How Many Years Have You Smoked Tobacco? 2 [email or web address] Information not available 12/02/2014 Sex: Unknown Functional Status Question Answer Note LastModified by Organizat ion Details LastModified Time Do you or have you ever used any other forms of tobacco or nicotine? No Information not available 02/07/2023 What is your level of alcohol consumption? None Information not available 01/05/2016 Are you currently employed? 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 Moderate Information not available 01/05/2016 Mental Status None recorded. Family History Relationship Description Onset Age of this Age Resolved Age Notes LastModified by Organization Details LastModified Time Mother Alcoholism [email or web address] Not avail able 01/05/2016 12:30:06 Mother Asthma [email or web address] Not available 01/05/2016 12:30:06 Mother Malignant tumor of breast [email or web address] Not available 01/04 12:30:06 Brother Attention deficit hyperactivit y disorder, predominantl y inattentive type [email or web address] Not available 01/04 12:30:06 Medical History Condition Response Gout N Kidney Cyst N Blood Diseases N Kidney Stones N Hyperthyroidism N Blood disorders N Blood Transfusion N MRSA Y Head Trauma/Injury N Emphysema N Congenital Heart Disease N Pneumonia N Premature N Peripheral Arterial Disease N Edema N TIA N Spine Problems N Gastrointestinal Disease N Headaches/Migraines N Lung Mass N Sinusitis N Obstructive Sleep Apnea N Anxiety Disorder Y Autoimmune disease N Obesity N Vision or Eye Problems N Arthritis N Polyps N Infertility N Blood Clot N Cancer Y Hematuria N Seasonal allergies N Leg or Foot Ulcers N Neck Injury N Raynaud's Disease N Polio N Hospital Admission other than N Aortic Aneurysm N Neurologic Disorder N Other Sleep Disorders N Arrhythmia N Rheumatoid Arthritis N Fibromyalgia N Abdominal Aortic Aneurysm Repair N Kidney Disease N Heart Problems N Heart Conditions N Ambloypia N Heart Disease/Heart Problems N Ear or Hearing Problems N Hospitalizations N Hyperparathyroidism N Migraines N Artificial Joints N Brain Tumors N NSAID Use N Acne N Eating Disorder N Encephalitis N PTSD N Meningitis N Constipation N Ulcers N Prostate Hypertrophy N Bleeding Disorder N Tuberculosis N Cerebral Palsy N AIDS/HIV N Myocardial Infarction N Urinary Tract Infection N Back Problems N Atrial Flutter N Substance Abuse N Peripheral Vascular Disease N Vertigo N Sleep Disorder N GERD/Reflux N Cirrhosis N Pulmonary Embolism N Chicken Pox N Autism Spectrum Disorder (ASD) N Hematologic Disease N Flomax Use Past or Present N Anxiety/Depression N Thyroid Disease N Colon Cancer N Breast Cancer Y Hernia N Glaucoma N Lung Disease N Hypothyroidism N Developmental or Behavioral Disorders N Bipolar N Breast Problem Y Pacemaker N Diverticulitis/Diverticulosis N Anesthesia Complications N Orthopedic Problems N Genitourinary Disease N Deep Vein Thrombosis N Varicose Veins N Cystic Fibrosis N Orthotics N Hearing Loss N Head Injury/Concussion N Developmental Problems N Congenital Anomalies N Gaspar [place]ite N Carotid Disease N Chronic Kidney Disease N Vitamin D Deficiency N ADHD N Endometriosis N Bladder or Kidney Problems N Meniers N Valvular Abnormalities N Psychiatric/Mental Health Condition N Organ Transplant N Dialysis N Schizophrenia N Foot Deformity N Speech Delay N Allergies/Hayfever N Dyslipidemia N Hyponatremia N Chronic Obstructive Pulmonary Disease N Parkinson's Disease N Developmental Delay N Diabetic Eye Disease N Osteoporosis/Osteopenia N Immune System Disorder N Multiple Sclerosis N Back Pain N Proteinuria N Colon Polyps N Mental Illness N Neurological Problems N Ovarian Cancer N Cardiomyopathy N Bedwetting N Blood Transfusions N Heart Problems/Murmur N Eye Trauma N Congestive Heart Failure (CHF) N Hyperlipidemia N Valvular Heart Disease N Kidney Failure N Double Vision N Ocular trauma N Abuse/Domestic Violence N Diverticulitis N Dementia N Hepatitis B N Lupus N Epilepsy/Seizures N Reflux/GERD N Sleep Apnea N Mental Problems N Warfarin Management N Aneurysm N Bronchitis N Heart Disease N Pre-Eclampsia N Hypertension N Gynecological History Statement/Question Response Abnormal Pap Y On BCP's at Conception? N STIs/STDs N HPV Vaccine N Most Recent Mammogram 10/01/2002 Age at Menarche 14 Current Control Method None Age at First Child 25 Sexually Active? N Menses Monthly N Date of Last Pap Smear 12/30/2006 Sexual Problems? N Desired Control Method None Obstetrics History GPAL:G 2 P 2 0 0 2 Type Value Full Term 2 Living 2 Total 2 Immunizations Vaccine Type Date Status Note Provider Nam e and Address Organization Details Recorded Time Hep A, adult 10/19/1999 completed Not Available [facility] 02/05/2025 17:08:03 Hep A, adult 06/11/2000 completed Not Available [facility] 02/05/2025 17:08:03 Hep A-Hep B 06/21/2024 completed Not Available [facility] 02/05/[facility] 17:08:03 Past Encounters Encounter ID Performer Location Encounter Start Date Encounter Closed Date Diagnosis/Indication Diagnosis SNOMED-CT Code Diagnosis ICD10 Code Diagnosis Note [id number] MD Lyndsey Duran (Adult Med) [address] [place] [address] 72252-606 0 12/02/2014 14:15:00 12/02/2014 17:13:44 History of malignant neoplasm of breast 574184270 [id number] MD Lyndsey Abdalla ([employer]LE[employer]) [address] [place] [address] 79938-207 0 01/05/2016 09:54:29 01/05/2016 17:40:06 History of malignant neoplasm of breast 519354519 Z85.3 Menopausal syndrome 1237 43564 N95.9 Lymphedema of lower extremity 989682532 I89.0 Malignant tumor of breast 445166826 [id number] MD Lyndsey Caruso (Adult Med) [address] [place] [address] 80169-032 0 03/15/2016 10:15:44 03/16/2016 13:37:07 Impaired glucose tolerance 6452472 R73.02 Random BS requested. Will f/u on portal if indicated History of malignant neoplasm of breast 066367895 Z85.3 [id number] MD Lyndsey Caruso (Adult Med) [address] [place] [address] 39205-016 0 04/17/2017 15:47:46 04/19/2017 13:23:47 Injury of globe of eye 480248080 S05.91XD [id number] MD Lyndsey Caruso (Adult Med) [address] [place] [address] 72847-458 0 03/08/2020 10:31:49 03/09/2020 11:51:38 Migraine 20116636 G43.408 [id number] MD Lyndsey Caruso (Adult Med) [address] [place] [address] 15140-750 0 07/07/2020 16:21:11 07/10/2020 13:41:10 Mood disorder 94930545 F39 [id number] MD Lyndsey Caruso (Adult Med) [address] [place] [address] 32589-880 0 09/22/2020 07:50:26 09/23/2020 12:51:50 Migraine 00374338 G43.909 History of malignant neoplasm of breast 391047597 Z85.3 Abdominal pain 17510511 R10.9 [id number] MD Lyndsey Caruso (Adult Med) [address] [place] [address] 05278-561 0 03/22/2021 14:30:27 03/23/2021 10:09:59 Mood disorder 53114045 F39 [id number] MD Lyndsey Caruso (Adult Med) [address] [place] [address] 95889-325 0 05/03/2021 17:06:22 05/04/2021 09:45:20 Migraine 44290616 G43.909 Stop topiramate . Trial B bertha Malignant tumor of breast 502838635 C50.011 C50.012 Mood disorder 97574893 F 40 Trial sertraline History of malignant neoplasm of breast 861124592 Z85.3 [id number] MD Lyndsey Caruso (Adult Med) [address] [place] [address] 10656-660 0 12/28/2021 16:54:25 12/29/2021 13:37:49 Abdominal pain 55575220 R10.9 Migraine 70022265 G43.90 9 Stop topiramate . Trial B bertha Mood disorder 62560037 F 39 [id number] MD Lyndsey Caruso (Adult Med) [address] [place] [address] 95567-427 0 08/15/2022 17:04:41 08/18/2022 11:57:02 Mood disorder 78795420 F39 Malignant tumor of breast 432716931 C50.011 C50.012 Migraine 14793273 G43.90 9 Stop topiramate . Trial B bertha [id number] MD Lyndsey Caruso (Adult Med) [address] [place] [address] 02494-147 0 02/07/2023 16:21:54 02/13/2023 12:24:00 Overweight 789688812 E66.3 Migraine 05449738 G43.90 9 Stop topiramate . Trial B bertha Mood disorder 36588824 F 40 Impaired g lucose tolerance 4679234 R73.02 Random BS requested. Will f/u on portal if indicated [id number] MD Lyndsey Caruso (Adult Med) [address] [place] [address] 04975-681 0 07/26/2023 14:59:06 07/27/2023 11:33:03 Impaired glucose tolerance 3983851 R73.02 Random BS requested. Will f/u on portal if indicated History of malignant neoplasm of breast 419297731 Z85.3 Chronic anemia 241299822 D64.9 Morning headache 0831717 02 R51.9 taper of propanolol Qod x 1 week then stop. Trial topiramate Dyspnea 056042385 R06.00 Pain of scar 925077068 L 90.5 [id number] Eryn Whitt MD [facility] (Adult Med) [address] [place] [address] 13936-742 0 11/26/2023 10:06:48 11/27/2023 16:29:37 Overweight 754392728 E66.3 Migraine 79739269 G43.90 9 Atypical chest pain 1025 50366 R07.89 Will go to ED if CP intensifie s History of malignant neoplasm of breast 126390185 Z85.3 Morning headache 2656831 02 R51.9 Stop topiramate . F/U neurology. Reorder sleep study [id number] Trey Dalton MD [facility] [address] [place] [address] 05/01/2024 11:09:37 05/02/2024 14:00:56 Obstructive sleep apnea syndrome 87194442 G47.33 HST Insomnia 454333720 G47.0 0 Sleep hygiene Vaping 432180794 Z77.29 advised to quit, will check PFTs and CXR, CBC and IgE [id number] Trey Dalton MD [facility] [address] [place] [address] 89251-694 2 09/08/2024 10:35:13 09/08/2024 11:22:19 Obstructive sleep apnea syndrome 88268081 G47.33 HST, mild apnea, AHI 12 Insomnia 362228233 G47.0 0 Sleep hygiene Vaping 491358789 Z77.29 advised to quit, PFTs was unremarkab le, IgE and CBC unremarkab le [id number] Trey Dalton MD [facility] [address] [place] [address] 01/08/2025 10:56:55 01/08/2025 11:18:59 Obstructive sleep apnea syndrome 97223362 G47.33 HST, mild apnea, AHI 12- treat conservati vely Insomnia 820800492 G47.0 0 Sleep hygiene Vaping 598320121 Z77.29 advised to quit, PFTs was unremarkab le, IgE and CBC unremarkab le, CXR unremarkab le [id number] Eryn Whitt MD [facility] (Adult Med) [address] [place] [address] 26466-128 0 02/05/2025 17:03:38 02/09/2025 16:01:52 Chest pain 42708462 R07.9 Chronic anemia 976928630 D64.9 Dyspnea 295824329 R06.00 Impaired g lucose tolerance 2387369 R73.02 Medication monitoring 39 4488859 Z51.81 Migraine 67354082 G43.90 9 Bunion 902249089 M21.61 1 Skin lesion 58090267 L98 .9 Health Concerns Section Related Observation LastModified by Organization Detai ls LastModified Time None Recorded Concern Status LastModified by Organization Details LastModified Time None Recorded Advance Directives Directive N: Payers Encounter Date Sequence Insurance Name Policy Number Policy Metzger Covered Member ID Metzger Member ID Guarantor Name 11/26/2023 1 [facility] [id number] Faustina Douglass [id number] Faustina Douglass 11/26/2023 1 [facility] - DOS ON OR AFTER 21 (MEDICAID REPLACEMENT - HMO) Faustina Douglass [id number] Faustina Douglass 05/01/2024 2 [place] Faustina Douglass [id number] Faustina Douglass 05/01/2024 1 [facility] [employer] ([facility]) [id number] Christianalebalbir Millas [id number] Faustina Douglass 09/08/2024 2 [place] Faustina Douglass [id number] Fasutina Douglass 09/08/2024 1 [facility] [id number] Christianalebalbir Millas [id number] Faustina Roblesas 01/08/2025 2 [place] Faustina Douglass [id number] Faustina Douglass 01/08/2025 1 [employer] ([facility]) [id number] Faustina Douglass [id number] Faustina Douglass 02/05/2025 2 [place] Faustina Douglass [id number] Faustina Douglass 02/05/2025 1 [facility] [id number] Faustina Douglass [id number] Faustina Douglass Notes Date Note Type Note Provider Name and Address Organization Details Recorded Time 11/26/2023 text/html Has seen neurologist and was started on Ubrelvy with good response the one time she tried it . She will start Botox injections this week She has been using Sumatriptan as in the past. She is nervous about trying new medicines. Has not been able to contact sleep study referral. No benefit from topiramate. Non-exertional random chest pain has been present for about months. Occasional pleuritic component. Spoke with plastic surgeon who thinks pain may be related to scar tissue implants. Eryn Whitt MD Attn: Accounting,[address] [place], [address], [facility] 11/26/2023 11:06:51 05/01/2024 text/html Patient is 48-year-old female who came to us complaining of insomnia. She relates that she does not sleep throughout the night and she has trouble falling asleep. She does have history of breast cancer in 2003 after which she had lost of trouble with pain for which she took a lot of pain medication. Patient has been vaping for the past few years. She has history of morning headache, waking up with dry mouth, occasional night sweats and occasional palpitation. Patient goes to bed at 10 to 10:30 p.m. and wakes up about 7:30 a.m., she does not take nap during the day. It takes her longer to go sleep. She lives in [place], [place]. She lives in [facility]. She does not have any pets. She is up-to-date with COVID-19 vaccine. Trey Dalton MD [address] [place], [address], [facility] 05/01/2024 11:38:20 09/08/2024 text/html Patient is here for follow up. Trey Dalton MD [address], [place], [address], [facility] 09/08/2024 10:56:21 01/08/2025 text/html Patient is here for folow up. She was unable to use CPAP. Her sleep apnea is mild , CXR in 09/23 independently evaluated by me was unremarkable Trey Dalton MD [address], [place], [address], [place] [facility] 01/08/2025 11:12:24 02/05/2025 text/html Needs referral t o derm for lesion left face and painful bunion of right great toe Eryn Whitt MD Attn: Accounting,[address] [place], [address], [facility] 02/05/2025 17:59:22 OBGyn Episode Ob Episode Information Episode Created Date Number of Fetuses Patient Bloodtype Patient rh Status Prepregnancy Weight lbs Domestic Partner Domestic Partner Phone Father Name Necktie Centralizing Machine Operator Status 01/05/20 16 1 CLOSED Fetus Data First Name Last Name Admitted to NICU Weight (g) Sex Living Outcome Pediatric Complications Fetus ID Race Codes Race Delivery Type 3657.08 55 M Full Term [id number] Standard Vaginal Delivery Domenico Calculation Initial Domenico Date Initial Exam Date Initial Exam Provider Initial Ultrasound Date Last Menstrual Period Date Ultra Sound Weeks Gestation 0 Eighteen To Twenty Week Domenico Update Ultra Sound Date Fundal Height At Umbil Quickening Date Ultra Sound Latest Weeks Gestation Final Domenico Confirmed By Final Domenico Confirmed Date Final Domenico Date Ultra Sound Latest Days Gestation 0 0 Menstrual History Last Menstrual Date Menses Monthly On Bcp Conception Prior Menses Frequency Hcg Plus Date Menarche Onset Age Delivery Information Delivery Date Delivery Type Labor Anesthesia Weeks Gestation Incision Type Labor Labor Length Hrs Delivered By Post Complications Tubal Sterilization Discharge Date Comments 3 Regional-Ep idural 40 false Discharge Information Feeding Method Contraceptive Method Maternal HG B and HCT Levels Ob Episode Information Episode Created Date Number of Fetuses Patient Bloodtype Patient rh Status Prepregnancy Weight lbs Domestic Partner Domestic Partner Phone Father Name Necktie Centralizing Machine Operator Status 01/05/20 16 1 CLOSED Fetus Data First Name Last Name Admitted to NICU Weight (g) Sex Living Outcome Pediatric Complications Fetus ID Race Codes Race Delivery Type 3061.74 6 F Full Term [id number] Standard Vaginal Delivery Domenico Calculation Initial Domenico Date Initial Exam Date Initial Exam Provider Initial Ultrasound Date Last Menstrual Period Date Ultra Sound Weeks Gestation 0 Eighteen To Twenty Week Domenico Update Ultra Sound Date Fundal Height At Umbil Quickening Date Ultra Sound Latest Weeks Gestation Final Domenico Confirmed By Final Domenico Confirmed Date Final Domenico Date Ultra Sound Latest Days Gestation 0 0 Menstrual History Last Menstrual Date Menses Monthly On Bcp Conception Prior Menses Frequency Hcg Plus Date Menarche Onset Age Delivery Information Delivery Date Delivery Type Labor Anesthesia Weeks Gestation Incision Type Labor Labor Length Hrs Delivered By Post Complications Tubal Sterilization Discharge Date Comments 1 None 38 false Discharge Information Feeding Method Contraceptive Method Maternal HG B and HCT Levels
--- OUTSIDE RECORDS SUMMARY | 2025-02-24 23:47 | XMS_ITS | Patient Health Record ---
Author Organization [facility] Address [address] [place] [address] Support Name Relationship Address Phone Shailesh Douglass Emergency Contact [address] [facility], [address] Faustina Douglass Guarantor Unknown Reason For Referral No Information Plan Of Treatment No Information
--- OUTSIDE RECORDS SUMMARY | 2025-02-24 23:47 | XMS_ITS | Clinical Summary ---
Author Organization [facility] Address [address] [place] [address] Care Team Providers Care Cell Builder Name Role Phone Eryn Taveras MD Primary Care Provider Source Comments [facility] Affiliates and Associated Physician Practices is amultiple site organization consisting of ambulatory clinics and hospital sitesin [place], [place], [place] and [place]. This disclosure is being madepursuant to the Care Everywhere program and may not contain all information available regarding this patient. Last updated 18.[facility] [employer] Allergies No known active allergies Medications * [...] Sex Assigned at Female 10/11/2023 10:05 AM DIRECTOR OUTPATIENT SERVICES Legal Sex Female 9:02 AM CDT Gender Identity Female 10/11/2023 10:05 AM DIRECTOR OUTPATIENT SERVICES Sexual Orientation Not on file Last Filed Vital Signs Vital Sign Reading Time Taken Comments Blood Pressure 116/75 11/07/2023 1:44 PM DIRECTOR OUTPATIENT SERVICES Pulse 67 11/07/2023 1:44 PM DIRECTOR OUTPATIENT SERVICES Temperature 36.8 C (98.3 F) 02/07/2023 10:49 AM CDT Respiratory Rate 16 10/05/2022 3:52 PM DIRECTOR OUTPATIENT SERVICES Oxygen Saturation 98% 11/07/2023 1:44 PM DIRECTOR OUTPATIENT SERVICES Inhaled Oxygen Concentration - - Weight 59.9 kg (132 lb) 11/07/2023 1:44 PM DIRECTOR OUTPATIENT SERVICES Height 157.5 cm (5' 2) 11/07/2023 1:44 PM DIRECTOR OUTPATIENT SERVICES Body Mass Index 24.14 11/07/2023 1:44 PM DIRECTOR OUTPATIENT SERVICES Plan of Treatment Health Maintenance Due Date [...] Management General On track( 023 4:00 PM DIRECTOR OUTPATIENT SERVICES) Rosalie Antony, RN Note: Expected end date: ongoing Interventions: Take all medications as prescribed Let your doctor know right away about any changes in your medications Make sure to request a refill of your medication at least one week prior to your last dose Medical Devices Implanted Type Area Net Fisher Device Identifier Shelf Expiration Date Model / Serial / Lot Impl Brst 13cm Natrelle P5.7cm d Ks - [id number] Implanted:Qty: 1 on 06/04/2020 by Mary Alice Hay MD at [facility] Right: Breast [employer] 01/27/2024 [facility]-500 / [id number] / Description:Filled to 510ml Impl Brst 13.3-13.1cm Natrelle P5.8-6.4 - [id number] Implanted:Qty: 1 on 06/04/2020 by Mary Alice Hay MD at [facility] Right: Breast [employer] 10/11/2023 [facility]-550 / [id number] / Description:Filled to 560ml Impl Brst 13.3-13.1cm Natrelle P5.8-6.4 - [id number] Implanted:Qty: 1 on 07/08/2021 by Mary Alice Hay MD at [facility] Left: Breast [employer] 06/01/2025 [facility]-550 / [id number] / [id number] Description:Total Fat inject ed = 160cc Right [...] bowel preparation was evaluated using the BBPS ([place] Bowel Preparation Scale) with scores of: Right [...] entire procedure. Procedure Code(s): --- Professional --- 82933, Colonoscopy, flexible; with removal of tumor(s), polyp(s), or other lesion(s) by snare technique Diagnosis Code(s): --- Professional --- Z12.11, Encounter for screening for malignant neoplasm of colon K63.5, Polyp of colon K57.30, Diverticulosis of large intestine without perforation or abscess without bleeding CPT copyright 2019 [employer]. All rights reserved. The codes documented in this report are preliminary and upon health information coder review may be revised to meet current compliance requirements. Nathan Edward MD 04/12/2022 12:25:35 PM Note Initiated On: 04/12/2022 8:47 AM Number of Addenda: [address] [place] [address] [facility] [employer] 04/12/2022 8:47 AM CDT Nathan Edward MD GI PROCEDURE ORDERAB LES Edited Result - Final [facility] [employer] from Last 3 Months or Most Recently Relevant to Health Maintenance Insurance MEDICAID - OUT OF STATE MED[place] - [place] [facility] Care Teams Cell Builder Relationship Specialty Start Date End Date Eryn Taveras MD [address] [place] [address] PCP - General Gastroenterology 04/13/20
--- OUTSIDE RECORDS SUMMARY | 2025-02-24 23:47 | XMS_ITS | Encounter Summary ---
Author Organization [facility] Address [address] [place] [address] Care Team Providers Care Outside Machinist Apprentice Name Role Phone Eryn Taveras MD Primary Care Provider [phone] Encounter Details Date Type Department Care Team (Late st Contact Info) Description 03/31/2019 Telephone [facility] [address] [place] [address] Mary Alice Hay MD [address] [place] [address] Social History Tobacco Use Types Packs/Day Years Used Date Smoking Tobacco: Former Cigarettes Q uit: 01/02/2019 Smokeless Tobacco: Never Alcohol Use Standard Drinks/Week Comments No 0 (1 standard drink = 0.6 oz pur e alcohol) Comments Unknown Sex and Gender Information Value Date Recorded Sex Assigned at Female 10/11/2023 10:05 AM AWNING SPREADER Legal Sex Female 9:02 AM CDT Gender Identity Female 10/11/2023 10:05 AM AWNING SPREADER Sexual Orientation Not on file documented as of this encounter Miscellaneous Notes * Telephone Encounter - Laureen Cordoba - 03/31/2019 3:05 PM CDT Per Fax back from [facility] for cpt code 95657-97. documented in this encounter Plan of Treatment Not on file documented as of this encounter Visit Diagnoses Not on filedocumented in this encounter Care Teams Outside Machinist Apprentice Relationship Specialty Start Date End Date Eryn Taveras MD [address] [place] [address] PCP - General Gastroenterology 04/13/20 documented as of this encounter
--- OUTSIDE RECORDS SUMMARY | 2025-02-24 23:47 | XMS_ITS | CONTINUITY OF CARE DOCUMENT ---
Author Name che, che Address Unknown Organization [facility] Address [address] [place] [address] Phone [phone] Care Team Providers Care Corrugator Name Role Phone Naye Morales MD Unavailable AIXA WHITT MD Unavailable [phone] AIXA WHITT MD Unavailable [phone] PROBLEMS Condition Status Date Provider Notes Cardiology examination active Naye perez MD Breast cancer active Naye Morales MD Chest pain-type to be determined active Kevin Morales MD Palpitations active Naye Morales MD ENCOUNTERS Date Type Provider Location Encounter Diag nosis - In-person encounter Office Visit Naye Morales MD [place] [facility] - In-person encounter Office Visit Naye Morales MD [place] [facility] - In-person encounter Office Visit Naye Morales MD [place] [facility] Cardiology examinationBreast cancerChest pain-type to be [...] blood pressure, systolic 104 mm[Hg] Mariia [facility] blood pressure, cuff size regular James frank Lombardi blood pressure, diastolic 84 mm[Hg] James frank Lombardi blood pressure, systolic 104 mm[Hg] Tab marycarmen Capron oxygen saturation, oximetry 98 % Martha Lombardi pulse rate 98 /min Martha Lombardi weight E&M 133 [lb_av] Martha Lombardi respiratory rate E&M 12 /min Martha Lombardi height E&M 62 [in_i] Martha Capron Body Mass Index (Ratio) 24.32 kg/m2 Korina Morales MD blood pressure, diastolic -1 mm[Hg] Li nkLogic blood pressure, systolic 107 mm[Hg] Mariia [employer]Logic blood pressure, diastolic 70 mm[Hg] Rickie rret blood pressure, systolic 107 mm[Hg] Jar ret pulse rate 81 /min Yariel erda y blood pressure, cuff size regular Ja rret height E&M 62 [in_i] [facility] y respiratory rate E&M 14 /min Yariel [...] history of marijuana use no Tanesha Ventimiglia [facility] drug use no Tanesha Ventimig jana [facility] alcohol use no Tanesha Ventimig jana [facility] smoking status Light tobacco smoker Amand a Ventimiglia [facility] smoking status Light tobacco smoker Clinton Morales MD smoking status Light tobacco smoker [facility] INSURANCE PROVIDERS Payer name Policy type / Coverage type Acme red libertarian ID [id number] ADVANCE DIRECTIVES Name Date DISCUSSED - NO DECISION MADE TREATMENT PLAN Date Name Performer Cardiology Tanesha Ventimigl ia [facility] Cardiology:one short episode of svt on holter e ncouraged to avoid caffeine Tanesha Ventimiglia [facility] Cardiology:most like ly musculoskeletal as occurs with movement and palpation on exam in setting of breast ca history e cho normal. Stress test normal r ecommended warm and cold compresses and lidocaine chest pain Tanesha Ventimiglia [facility] Cardiology: A lso rports chest palpitations which [...]
--- OUTSIDE RECORDS SUMMARY | 2025-02-24 23:47 | XMS_ITS | Encounter Summary ---
Author Organization [facility] Address [address] [place] [address] Care Team Providers Care Buttonhole Facer Name Role Phone Eryn Taveras MD Primary Care Provider Encounter Details Date Type Department Care Team (Late st Contact Info) Description 03/04/2020 Telephone [facility] [address] [place] [address] Mary Alice Hay MD [address] [place] [address] Social History Tobacco Use Types Packs/Day Years Used Date Smoking Tobacco: Former Cigarettes Q uit: 01/02/2019 Smokeless Tobacco: Never Alcohol Use Standard Drinks/Week Comments No 0 (1 standard drink = 0.6 oz pur e alcohol) Comments Unknown Sex and Gender Information Value Date Recorded Sex Assigned at Female 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 No / Unsure 02/25/2020 1:38 PM CDT documented as of this encounter Miscellaneous Notes * Telephone Encounter - Yasmin Ocasio - 03/04/2020 10:14 AM CDT Per [facility]y at [facility], cpt codes: 67662-09, 37814-54, and 89867-95 has been approved with authorization# [id number]. This has been approved until 07/15/2020. Patient is scheduled for this procedure with Dr. Hay on 06/04/2020. She is coming into PAT for her COVID test on 06/01/2020 at 11:00 am. Yasmin Rodriguez [phone] documented in this encounter Plan of Treatment Not on file documented as of this encounter Visit Diagnoses Not on filedocumented in this encounter Care Teams Buttonhole Facer Relationship Specialty Start Date End Date Eryn Taveras MD [address] [place] [id number] PCP - General Gastroenterology 04/13/20 documented as of this encounter
[2025-02-25] VITALS (11 sets, daily range): BP systolic 108–115; BP diastolic 64–93; PULSE 68–83; RESP 18; TEMP 36.6; O2SAT 96–100
--- NOTE | 2025-02-25 00:09 | PC.NURSE ---
lab contacted to add on tsh
--- NOTE | 2025-02-25 00:11 | PC.NURSE ---
yunior gtz np to give gi cocktail
[2025-02-25] MEDS: SODIUM CHLORIDE 0.9% IV 1,000 ML 999 ML IV CONT (00:17)
[2025-02-25] MEDS: BELLADONNA ALK/PHENOB ELIX 10 ML, MAG HYDROX/ALUMINUM HYD/SIMETH 30 ML, LIDOCAINE 2% VI... PO (00:17)
[2025-02-25] MEDS: KETOROLAC 15 MG/ML VIAL (*BKC) IV PUSH (01:44)
== END 2025-02-25 03:00 | disposition home or self-care (01) ==
PROVIDERS: Emergency Medicine; Physician Assistant; Emergency Provider Registered Nurse
DX: R07.89 Other chest pain (principal); K80.20 Calculus of gallbladder without cholecystitis without obstruction
CPT/HCPCS: 36415; 71046; 71275; 80053; 83690; 84443; 84484; 85025; 85380; 85610; 85730; 93005; 96361; 96374; 99284; A9270; J1885; J7030; Q9967